=== PATIENT | female | born 1990 | race Caucasian/White ===

== ENCOUNTER → 2018-03-09 16:07 | Outpatient (CLI) | payer OTHER, SELFPAY ==
[2018-03-09 17:59] LABS: Hemoglobin A1c 5.2 % (4.2-6.3)
[2018-03-09 18:04] LABS: Anion Gap 5 (5-15); BUN 12 mg/dL (7-18); BUN/Creat Ratio 14.2 RATIO (10-20); Calcium,Total 8.8 mg/dL (8.5-10.1); Chloride 105 mmol/L (98-107); Creatinine, Serum 0.84 mg/dL (0.55-1.02); EST Glomerular Filtration Rate 87 mL/min (>60); Est Glom Filt Rate - Afr Amer 105 mL/min (>60); Glucose 128 mg/dL (74-106); Potassium 3.7 mmol/L (3.5-5.1); Sodium Level 139 mmol/L (136-145); Thyroid Stim Hormone (TSH) 1.04 uIU/mL (0.358-3.74)
[2018-03-09 18:06] LABS: Absolute Lymphocyte Count 2.41 X10^3/ul (0.83-4.51); Absolute Neutrophil Count 5.9 X10^3/uL (2.0-7.7); Basophil# 0.03 X10^3/uL; Basophil% 0.3 % (0-1); Eosinophil# 0.08 X10^3/uL; Eosinophils% 0.9 % (0-5); Lymphocyte # 2.41 X10^3/ul (4.0); Lymphocyte % 27.3 % (19-41); Mean Corp Hgb Conc 32.5 g/gl (32-36); Mean Corpuscular Hgb 30.6 pg (27.0-32.0); Mean Corpuscular Volume 94.1 fL (81-99); Mean Platelet Vol. 11.1 fl (6.2-12.0); Monocyte# 0.39 X10^3/uL; Monocyte% 4.4 % (0-10); Neutrophil # 5.93 X10^3/uL (2.7-7.7); Neutrophil % 67.1 % (47-70); Platelet Count 310 K/mm3 (150-450); RBC Distribution Width CV 12.9 % (11.6-14.6); RBC Distribution Width SD 44.4 fl (35.1-43.9); Red Blood Count 4.25 M/mm3 (4.2-5.4); White Blood Count 8.8 K/mm3 (4.4-11.0)
[2018-03-09 18:11] LABS: POSITIVE COUNT NO; POSITIVE DIFFERENTIAL NO; POSITIVE MORPHOLOGY NO
== END ==
PROVIDERS: Family Provider Family Medicine; PCP Family Medicine; Visit Provider Family Medicine
DX: Z00.00 Encounter for general adult medical examination without abnormal findings (principal)
CPT/HCPCS: 36415; 80048; 83036; 84443; 85025

== ENCOUNTER → 2018-08-30 | Outpatient (CLI) | payer OTHER, SELFPAY ==
[2017-01-16 03:40] VITALS: BMI 28.6
== END | disposition home or self-care (01) ==
LOC: LAB 16:40
PROVIDERS: Family Provider Family Medicine; PCP Family Medicine; Referring Provider Obstetrics & Gynecology; Visit Provider Obstetrics & Gynecology
DX: Z34.90 Encounter for supervision of normal pregnancy, unspecified, unspecified trimester (principal)
CPT/HCPCS: 36415; 84702

== ENCOUNTER → 2018-09-28 | Outpatient (CLI) | payer OTHER, SELFPAY ==
[2018-09-28 09:04] VITALS: BMI 28.6
[2018-09-28 10:01] LABS: Absolute Lymphocyte Count 1.31 X10^3/ul (0.83-4.51); Basophil# 0.01 X10^3/uL; Basophil% 0.1 % (0-1); Eosinophil# 0.05 X10^3/uL; Eosinophils% 0.7 % (0-5); Hematocrit 38.6 % (37-47); Hemoglobin 13.3 g/dl (12.0-15.0); Lymphocyte # 1.31 X10^3/ul (4.0); Lymphocyte % 18.8 % (19-41); Mean Corp Hgb Conc 34.5 g/gl (32-36); Mean Platelet Vol. 10.8 fl (6.2-12.0); Monocyte# 0.53 X10^3/uL; Monocyte% 7.6 % (0-10); Neutrophil # 5.04 X10^3/uL (2.7-7.7); Neutrophil % 72.7 % (47-70); Platelet Count 266 K/mm3 (150-450); RBC Distribution Width CV 13.2 % (11.6-14.6); Red Blood Count 4.29 M/mm3 (4.2-5.4)
[2018-09-28 10:03] LABS: POSITIVE COUNT NO; POSITIVE DIFFERENTIAL NO; POSITIVE MORPHOLOGY NO
[2018-09-28 10:39] LABS: Glucose Challenge Gest 1H 50g 91 mg/dL (70-140); T4 Free Direct 1.06 ng/dL (0.76-1.46)
[2018-09-28 11:25] LABS: HIV - WCH Non-Reactive (Nonreactive); Rubella IgG 71.3 IU/mL
[2018-09-28 15:41] LABS: Chlamydia Trachomatis by PCR Negative (Negative); Neisserai gonorrhoeae by PCR Negative (Negative); Probe Check PASS; Sample Adequacy Control PASS; Specimen Processing Control PASS
[2018-09-29 11:26] LABS: HEPATITIS B SURFACE AG Negative (Negative)
[2018-09-30 03:28] LABS: Rapid Plasmin Reagin (RPR) NONREACTIVE (NONREACTIVE)
[2018-10-03 17:29] LABS: HPV Reflexed? NOT INDICATED
== END | disposition home or self-care (01) ==
PROVIDERS: Family Provider Family Medicine; PCP Family Medicine; Referring Provider Obstetrics & Gynecology; Visit Provider Obstetrics & Gynecology
DX: Z34.90 Encounter for supervision of normal pregnancy, unspecified, unspecified trimester (principal); Z34.81 Encounter for supervision of other normal pregnancy, first trimester; N89.8 Other specified noninflammatory disorders of vagina; Z12.4 Encounter for screening for malignant neoplasm of cervix; E01.0 Iodine-deficiency related diffuse (endemic) goiter; O99.210 Obesity complicating pregnancy, unspecified trimester; E66.9 Obesity, unspecified; Z3A.00 Weeks of gestation of pregnancy not specified
CPT/HCPCS: 36415; 82950; 84439; 84443; 85025; 86592; 86703; 86762; 86850; 86900; 87070; 87086; 87205; 87340; 87491; 87591; 87624; 88175; G0145

== ENCOUNTER → 2018-10-01 | Outpatient (CLI) | payer OTHER, SELFPAY ==
[2018-09-28 09:04] VITALS: BMI 28.6
--- NOTE | 2018-10-01 09:49 | US_ITS ---
STUDY: THYROID ULTRASOUND REASON FOR EXAM: Female, 28 years old. Thyromegaly TECHNIQUE: Ultrasound evaluation of the thyroid was performed with real-time and static wilkerson-scale imaging. COMPARISON: None. FINDINGS: RIGHT LOBE: The right lobe of the thyroid gland measures 4.9 x 1.7 x 1 cm. There is a homogeneous echotexture. There is a 3 x 2 x 2 mm hypoechoic upper pole nodule. LEFT LOBE: The left lobe of the thyroid gland measures 4.9 x 1.6 x 1.5 cm. There is a homogeneous echotexture. There is a 3 x 3 x 2 mm mid pole hypoechoic nodule. ISTHMUS: The isthmus measures 3 mm . The regional lymph nodes are normal. US/Thyroid IMPRESSION: Bilateral nodules described above, of unlikely clinical significance. Electronically Signed: He Escobar, at 14:18 EDT Tel , Service support ,
== END | disposition home or self-care (01) ==
LOC: US 09:47
PROVIDERS: Family Provider Family Medicine; PCP Family Medicine; Referring Provider Obstetrics & Gynecology; Visit Provider Obstetrics & Gynecology
DX: E01.0 Iodine-deficiency related diffuse (endemic) goiter (principal)
CPT/HCPCS: 76536

== ENCOUNTER → 2018-11-29 | Outpatient (CLI) | payer OTHER, SELFPAY ==
[2018-11-23 08:54] VITALS: BMI 28.6
== END | disposition home or self-care (01) ==
PROVIDERS: Family Provider Family Medicine; PCP Family Medicine; Referring Provider Family Medicine; Visit Provider Family Medicine
DX: K12.0 Recurrent oral aphthae (principal)
CPT/HCPCS: 87255

== ENCOUNTER → 2018-12-01 | Outpatient (CLI) | payer OTHER, SELFPAY ==
[2018-12-01 16:09] VITALS: BMI 26.6
[2018-12-01 18:06] LABS: ALB/GLOB Ratio 0.8 RATIO (0.9-2.4); AST(SGOT) 10 U/L (15-37); Alanine Aminotransfer ALT/SGPT 11 U/L (13-56); Albumin, Serum 3.1 g/dL (3.2-5.0); Alkaline Phosphatase 53 U/L (45-117); Anion Gap 6 (5-15); BUN 10 mg/dL (7-18); BUN/Creat Ratio 14.2 RATIO (10-20); Calcium,Total 8.6 mg/dL (8.5-10.1); Chloride 105 mmol/L (98-107); Creatinine, Serum 0.71 mg/dL (0.55-1.02); EST Glomerular Filtration Rate 106 mL/min (>60); Est Glom Filt Rate - Afr Amer 128 mL/min (>60); Globulin 3.8 g/dL (2.2-4.2); Glucose 76 mg/dL (74-106); Protein, Total 6.9 g/dL (6.4-8.2); Sodium Level 134 mmol/L (136-145)
== END | disposition home or self-care (01) ==
LOC: LAB 16:26
PROVIDERS: Family Provider Family Medicine; PCP Family Medicine; Referring Provider Nurse Practitioner Women's Health; Visit Provider Nurse Practitioner Women's Health
DX: L50.8 Other urticaria (principal)
CPT/HCPCS: 80053

== ENCOUNTER → 2019-01-25 | Outpatient (CLI) | payer OTHER, SELFPAY ==
[2019-01-25 09:12] VITALS: BMI 26.6
[2019-01-25 10:27] LABS: Absolute Lymphocyte Count 1.85 X10^3/uL (0.83-4.51); Absolute Neutrophil Count 8.4 X10^3/uL (2.0-7.7); Basophil# 0.03 X10^3/uL; Basophil% 0.3 % (0-1); Eosinophil# 0.18 X10^3/uL; Eosinophils% 1.6 % (0-5); Hematocrit 35.5 % (37-47); Hemoglobin 11.8 g/dL (12.0-15.0); Lymphocyte # 1.85 X10^3/ul (4.0); Lymphocyte % 16.9 % (19-41); Mean Corp Hgb Conc 33.2 g/dL (32-36); Mean Corpuscular Hgb 32.4 pg (27.0-32.0); Mean Corpuscular Volume 97.5 fL (81-99); Mean Platelet Vol. 10.9 fl (6.2-12.0); Monocyte# 0.47 X10^3/uL; Monocyte% 4.3 % (0-10); NRBC Flagged by Analyzer 0 % (0-5); Neutrophil # 8.36 X10^3/uL (2.7-7.7); Neutrophil % 76.3 % (47-70); Platelet Count 274 K/mm3 (150-450); RBC Distribution Width CV 13.3 % (11.6-14.6); RBC Distribution Width SD 47.8 fl (35.1-43.9); Red Blood Count 3.64 M/mm3 (4.2-5.4)
[2019-01-25 10:40] LABS: Glucose Challenge Gest 1H 50g 101 mg/dL (70-140)
== END | disposition home or self-care (01) ==
LOC: PAVLAB 09:18
PROVIDERS: Family Provider Family Medicine; PCP Family Medicine; Referring Provider Obstetrics & Gynecology; Visit Provider Obstetrics & Gynecology
DX: O26.899 Other specified pregnancy related conditions, unspecified trimester (principal); Z67.91 Unspecified blood type, Rh negative; O09.91 Supervision of high risk pregnancy, unspecified, first trimester; Z3A.00 Weeks of gestation of pregnancy not specified
CPT/HCPCS: 36415; 82950; 85025; 86850; 86900; 86901

== ENCOUNTER → 2019-02-22 | Outpatient (CLI) | payer OTHER, SELFPAY ==
[2019-02-17 08:39] VITALS: BMI 26.6
--- NOTE | 2019-02-22 16:02 | US_ITS ---
STUDY: SECOND AND THIRD TRIMESTER OBSTETRICAL ULTRASOUND REASON FOR EXAM: Female, 29 years old growth LMP: TECHNIQUE: Transabdominal TECHNICAL QUALITY: Adequate. PRIOR ULTRASOUND: None. FINDINGS: There is a single intrauterine fetus. The fetus is in a cephalic presentation. There is demonstrated cardiac activity with a heart rate of 142 bpm. There is a normal amniotic fluid volume. The largest amniotic fluid pocket measures 4.7 cm. The amniotic fluid index (YISSEL) is 14.95 cm. The placenta is posterior There are Grade 2 placental changes. BIOMETRY: BPD: 8.09 cm: 32 weeks, 4 days HC: 29.37 cm: 32 weeks, 3 days AC: 28.26 cm: 32 weeks, 3 days FL: 6.2 cm: 32 weeks, 1 days CI: FL/BPD: FL/HC: FL/AC: HC/AC: age by current US: 32 weeks, 3 days. YUNIEL by current US: April 16, 2019. Estimated weight: 1940 grams, +/- 283 grams, 39 %. ANATOMY: Not studied at this time US/OB Limited With Biometrics IMPRESSION: Viable intrauterine gestation approximately 32-33 weeks gestational age. No significant abnormalities Electronically Signed: He Graham MD at 19:58 EDT , Service support ,
== END | disposition home or self-care (01) ==
LOC: US 16:01
PROVIDERS: Family Provider Family Medicine; PCP Family Medicine; Referring Provider Obstetrics & Gynecology; Visit Provider Obstetrics & Gynecology
DX: Z34.93 Encounter for supervision of normal pregnancy, unspecified, third trimester (principal); Z3A.31 31 weeks gestation of pregnancy
CPT/HCPCS: 76816

== ENCOUNTER → 2019-02-23 | Outpatient (CLI) | payer OTHER, SELFPAY ==
[2019-02-23 08:08] VITALS: BMI 26.6
[2019-02-23 09:03] LABS: ROM Internal Control Test YES-OK TO RESULT pt. (Internal QC); ROM Patient Test Negative (Negative); Record Kit Lot#, ROM+ J8255
== END | disposition home or self-care (01) ==
LOC: LABSPEC 08:37
PROVIDERS: Family Provider Family Medicine; PCP Family Medicine; Visit Provider Obstetrics & Gynecology
DX: N98.9 Complication associated with artificial fertilization, unspecified (principal)
CPT/HCPCS: 84112

== ENCOUNTER → 2019-03-17 | Outpatient (CLI) | payer OTHER, SELFPAY ==
[2019-03-03 08:45] VITALS: BMI 26.6
[2019-03-17 08:46] VITALS: BMI 26.6
--- NOTE | 2019-03-17 09:24 | US_ITS ---
STUDY: SECOND AND THIRD TRIMESTER OBSTETRICAL ULTRASOUND REASON FOR EXAM: Female, 29 years old growth. LMP: July 11, 2018. TECHNIQUE: Transabdominal TECHNICAL QUALITY: Adequate. PRIOR ULTRASOUND: Comparison is made with prior study dated February 22, 2019. FINDINGS: There is a single intrauterine fetus. The fetus is in a cephalic presentation. There is demonstrated cardiac activity with a heart rate of 123 bpm. There is a normal amniotic fluid volume. The largest amniotic fluid pocket measures 5.4 cm. The amniotic fluid index (YISSEL) is 12.3 cm. The placenta is posterior in location and is not low lying. There are Grade 2 placental changes. The cervix measures 3.3 cm in length. The adnexal regions are not visualized. BIOMETRY: BPD: 8.61 cm: 34 weeks, 5 days HC: 31.22 cm: 34 weeks, 6 days AC: 32.47 cm: 36 weeks, 2 days FL: 6.44 cm: 33 weeks, 1 days CI: 82% FL/BPD: 75% FL/HC: FL/AC: 20% HC/AC: 0.96 age by current US: 34 weeks, 3 days. YUNIEL by current US: April 25, 2019. Estimated weight: 2632 grams, +/- 390 grams, 40 %. age by prior US: 35 weeks, 5 days. YUNIEL by prior US: April 16, 2019. Age by LMP: 35 weeks, 4 days. YUNIEL by LMP: April 17, 2019. US/OB Limited With Biometrics IMPRESSION: Single live intrauterine gestation with mean gestational age of 35 weeks and 5 days. The measurements obtained today fall within the normal expected range. Electronically Signed: Isidoro Tello, at 14:48 EDT , Service support ,
== END | disposition home or self-care (01) ==
LOC: OPUS 09:23
PROVIDERS: Family Provider Family Medicine; PCP Family Medicine; Referring Provider Obstetrics & Gynecology; Visit Provider Obstetrics & Gynecology
DX: O09.90 Supervision of high risk pregnancy, unspecified, unspecified trimester (principal); Z86.32 Personal history of gestational diabetes; Z3A.00 Weeks of gestation of pregnancy not specified
CPT/HCPCS: 76816

== ENCOUNTER 2019-03-19 01:35 | Inpatient (IN) | payer OTHER, SELFPAY ==
[2019-03-17 08:46] VITALS: BMI 26.6
[2019-03-19 01:06] VITALS: BMI 28.9
[2019-03-19] MEDS: Lactated Ringers 1,000 ML 50 ML IV (01:35)
[2019-03-19 01:55] LABS: Absolute Lymphocyte Count 3.64 X10^3/uL (0.83-4.51); Absolute Neutrophil Count 8.8 X10^3/uL (2.0-7.7); Basophil# 0.04 X10^3/uL; Basophil% 0.3 % (0-1); Eosinophil# 0.23 X10^3/uL; Eosinophils% 1.7 % (0-5); Hematocrit 37.8 % (37-47); Hemoglobin 12.6 g/dL (12.0-15.0); Lymphocyte # 3.64 X10^3/ul (4.0); Lymphocyte % 26.8 % (19-41); Mean Corp Hgb Conc 33.3 g/dL (32-36); Mean Corpuscular Hgb 31.7 pg (27.0-32.0); Mean Corpuscular Volume 95.2 fL (81-99); Mean Platelet Vol. 11.3 fl (6.2-12.0); Monocyte# 0.81 X10^3/uL; NRBC Flagged by Analyzer 0 % (0-5); Neutrophil # 8.81 X10^3/uL (2.7-7.7); Neutrophil % 64.7 % (47-70); Platelet Count 279 K/mm3 (150-450); RBC Distribution Width CV 12.8 % (11.6-14.6); RBC Distribution Width SD 44.4 fl (35.1-43.9); Red Blood Count 3.97 M/mm3 (4.2-5.4); White Blood Count 13.6 K/mm3 (4.4-11.0)
[2019-03-19 02:59] LABS: Group B Strep DNA By PCR Negative (Negative); Internal Control PASS; Probe Check PASS; Specimen Processing Control PASS
--- NOTE | 2019-03-19 03:42 | HP.PCM_ITS ---
- Problem List (1) Primary herpes simplex infection of oral region Status: Acute Comment: in first trimester, reassurance provided. patient to discuss with director immunology for after , growth us third trimester normal (2) Influenza vaccine administered Status: Acute Comment: given on 02/17/19 (3) Counseling for control regarding intrauterine device (IUD) Status: Acute Comment: IUD 6 wk pp (4) Rh negative status during Status: Acute Qualifiers: Comment: B neg- rhogam given 01/25 (5) History of gestational diabetes Status: Acute Comment: glucola testing, testing normal (6) Supervision of high-risk Status: Acute Qualifiers: Comment: PRR YUNIEL 04/17/19 girl Alcira Hernandez Ayo (7) History of delivery Status: Acute Comment: weekly progesterone injections until 36 weeks (8) Status: Acute Qualifiers: Comment: nl carrier screen, low risk NIPT. MFM Anatomy US normal. declined ntd screening History Date of Admission: 01/16/17 Final YUNIEL: 04/17/19 Gestational age: 35 Weeks and 6 Days History of this : This is a 29 year-old, at 35 weeks gestational age presents with PPROM clear fluid at 1 am. she has occasional ctx but no bleeding. no signs of infection. h/o PTD at 32 weeks. Allergies No Known Allergies Allergy (Verified 03/17/19 08:46) Home Medications: Home Medications Hydroxyprogesterone Caproat/Pf [[place] (PF)] 275 mg SUBCUT QWEEK 03/19/19 Pnv No.95/Ferrous Fum/Folic AC [ Formula Tablet] 1 tab PO DAILY 03/19/19 Smoking Status: Never smoker Number of Fetus(es): 1 NST - FHR Rate Baby A Baseline: 150 Variability:: Moderate Accelerations:: 15 x 15 Decelerations:: None NST Reactive:: Yes FHR Category:: Category I Uterine Activity:: q 10 History Past Pregnancies: Past Pregncies previous 32 weeks PTL Labs: Mom's Microbiology 03/19/19 Unknown Genital vaginal Group B Streptococcus Culture - Pending Mom's Labs & Results 03/19/19 03/19/19 03/19/19 01:12 EST 01:15 EST 01:15 EST WBC 13.6 H RBC 3.97 L Hgb 12.6 Hct 37.8 MCV 95.2 MCH 31.7 MCHC 33.3 RDW Std Deviation 44.4 H RDW Coeff of Rylee 12.8 Plt Count 279 MPV 11.3 Immature Gran % (Auto) 0.500 Neut % (Auto) 64.7 Lymph % (Auto) 26.8 [place] % (Auto) 6.0 Eos % (Auto) 1.7 Baso % (Auto) 0.3 Absolute Neuts (auto) 8.8 H Absolute Lymphs (auto) 3.64 Nucleated RBC % 0 Group B Strep DNA Negative Specimen Comment Not Reportable Blood Type Pending Antibody Screen Pending 03/19/19 01:15 EST WBC RBC Hgb Hct MCV MCH MCHC RDW Std Deviation RDW Coeff of Rylee Plt Count MPV Immature Gran % (Auto) Neut % (Auto) Lymph % (Auto) [place] % (Auto) Eos % (Auto) Baso % (Auto) Absolute Neuts (auto) Absolute Lymphs (auto) Nucleated RBC % Group B Strep DNA Specimen Comment Blood Type B NEGATIVE Antibody Screen NEGATIVE Course Did the patient receive Yes care? Labs Blood Type: B RH: NEGATIVE RPR/VDRL/Syphilis Nonreactive Rubella status Immune HbSAg Negative Date Done: 09/28/18 Chlamydia Negative Gonorrhea Negative HIV/AIDS Non-Reactive Group B Strep: Collected on Admission Current Obstetrical History Gestational Diabetes No: not this Incompetent Cervix No Infertility No IUGR No Macrosomia No Hypertension/Pre-eclampsia No Placenta Previa/Abruption No PTL/PROM Yes Uterine anomaly No Oligohydramnios No Polyhydramnios No Multiple gestation No Past Medical History Asthma No Diabetes No Hypertension No Heart disease No Mitral valve prolapse No Neurologic/Seizure disorder/ No Migraines Kidney disease No Liver disease No Varicosities No Clotting disorders/Hx of DVT No Thyroid Dysfunction No Other medical diseases No Psychiatric disorders No Major trauma No Abnormal PAP smear No Sleep apnea No Mammogram in the last 2 years No Enter DETAILS of medical primary outbreak of oral HSV in 1st trimester history Social History Marital Status: Alleged father Ayo Manjarrez Hx Smoking No Smoking Status Never smoker Expected Delivery Method: Spontaneous Vaginal Review of Systems Constitutional: Denies: Fever, Malaise Eyes: Denies: Blurred vision, Vision Change HEENT: Denies: Head Aches, Visual Changes Cardiovascular: Denies: Chest Pain, Palpitations Respiratory: Denies: Cough, Shortness of Breath, Wheezing Gastrointestinal: Denies: Abdominal Pain, Diarrhea, Nausea, Vomiting Genitourinary: Denies: Dysuria, Hematuria Musculoskeletal: Denies: Joint Pain, Muscle pain Skin: Denies: Lesions, Rash Neurological: Denies: Blurred vision, Focal weakness, Headaches Psychiatric: Denies: Anxiety, Depression Endocrine: Denies: Heat/ Cold Intolerance Hematologic/ Lymphatic: Denies: Easy Bruising, Easy Bleeding Physical Exam General: Alert, Cooperative, No apparent distress HEENT: Atraumatic, Normocephalic. Negative for: Thyromegaly, Lymphadenopathy Cardiovascular: Regular rate Lungs: Normal air movement Abdomen: Soft, Non Tender, Gravid Neurological: Deep Tendon Reflexes 2+/4 and Symmetrical, Neuro grossly intact MID LEVEL CLINICIAN: Normal external genitalia. Negative for: Vulvar lesions Estimated gestational size: Appropriate for gestational size Presentation: Cephalic Cervix Dilation (cm): 1.5 Station: -3 Effacement (%): 20 Assessment/Plan All Active Problems (Last Reviewed 03/17/19 @ 08:46 by Nivia Tejada) Primary herpes simplex infection of oral region (Acute) Influenza vaccine administered (Acute) Counseling for control regarding intrauterine device (IUD) (Acute) Rh negative status during (Acute) History of gestational diabetes (Acute) Supervision of high-risk (Acute) History of delivery (Acute) (Acute) Acute urticaria (Resolved) This is a 29 year-old, , at 35 weeks gestational age presents with PPROM prematurity- celestone ampicillin gbs prophylaxis exp management for 6 hours post delivery then plan pit PRN minimal intervention preferred
[2019-03-19] MEDS: Betamethasone/Betamethasone 30 MG/5 ML Vial 12 MG IM (03:44)
--- NOTE | 2019-03-19 08:33 | PCM.PN.BLA ---
Progress Note discussed with patient balance between exp management and support of her labor- discussed risk fo infection with prolonged labor a nd being . patient open to recheck in 1 hour and start pitocin if no cervical change. FHT: 150 Moderate variability reactive no decelerations category I tracing [place]: irregular Contractions
[2019-03-19] MEDS: Oxytocin 30 units/NS 500 ml 30 UNITS/500 ML IV.SOLN IV (10:32)
[2019-03-19] MEDS: Ondansetron 4 MG/2 ML Vial IV (13:41)
[2019-03-19] MEDS: 0.9% Saline Lock 10 ML Syringe IV (13:42)
[2019-03-19] MEDS: Oxytocin 30 units/NS 500 ml 30 UNITS/500 ML IV.SOLN 334 UNITS IV (14:35)
--- NOTE | 2019-03-19 14:44 | OP.PCM_ITS ---
Problem List (1) Primary herpes simplex infection of oral region Status: Acute Comment: in first trimester, reassurance provided. patient to discuss with meat and seafood manager for after , growth us third trimester normal (2) Influenza vaccine administered Status: Acute Comment: given on 02/17/19 (3) Counseling for control regarding intrauterine device (IUD) Status: Acute Comment: IUD 6 wk pp (4) Rh negative status during Status: Acute Qualifiers: Comment: B neg- rhogam given 01/25 (5) History of gestational diabetes Status: Acute Comment: glucola testing, testing normal (6) Supervision of high-risk Status: Acute Qualifiers: Comment: PRR YUNIEL 04/17/19 girl Alcira Hernandez Ayo (7) History of delivery Status: Acute Comment: weekly progesterone injections until 36 weeks (8) Status: Acute Qualifiers: Comment: nl carrier screen, low risk NIPT. MFM Anatomy US normal. declined ntd screening (9) premature rupture of membranes (PPROM) delivered, current hospitalization Status: Acute Vaginal Delivery Maternal Presentation: Active Labor, - - pprom 29 yo @ 35 weeks presents with PPROM Method of Induction: Pitocin Amniotic Membrane Rupture Type: Spontaneous at home Amniotic Fluid Description: Clear Final YUNIEL: 04/17/19 Gestational age: 35 Weeks and 6 Days Date of Procedure: 03/19/19 Pre-Operative Diagnosis: pprom Post-Operative Diagnosis: same Surgery/ Procedure Performed: Spontaneous Vaginal Delivery Type of Anesthesia: Epidural Description of Procedure: Patient began pushing and delivered the head in the ELIF presentation. The head was delivered atraumatically. The anterior and posterior shoulders delivered without complication followed by the rest of the infant and the was placed on the maternal abdomen. Delayed cord clamping was employed for approximately 60 seconds. Cord was clamped and cut and gentle traction was applied to the cord and the placenta delivered spontaneously immediately following it was noted to be intact with three-vessel cord. The perineum and vagina were inspected and noted to have a small first-degree perineal laceration that was injected with 1% lidocaine and repaired in the usual fashion with 3-0 Vicryl Rapide. EBL was 100 cc. Patient and infant tolerated delivery well. Presentation: ELIF Placental Delivery Description: Spontaneous Placenta Disposition: [facility] Cord Vessel Description: 3 Vessels Cord Entanglement: None Estimated Blood Loss: 100 A gender: Female Episiotomy Description: None Laceration: Perineal Extension/lac, 1st degree Medications given after delivery: IV Pitocin Complications: None Multi Select Codes - Urinary/Genital Urinary/Genital CPT Codes: 56253 Vaginal Delivery [facility]
[2019-03-19] MEDS: Acetaminophen 325 MG Tablet PO (15:11)
[2019-03-19 20:10] VITALS: BP 106/51; PULSE 73; RESP 17; TEMP 36.5
[2019-03-19 23:05] VITALS: BP 107/45; PULSE 61; RESP 17
[2019-03-20] VITALS (7 sets, daily range): BP systolic 99–116; BP diastolic 39–63; PULSE 60–73; RESP 16; TEMP 36.6–36.8
[2019-03-20] MEDS: Acetaminophen 500 MG Tablet 1000 MG PO (03:23)
--- NOTE | 2019-03-20 07:20 | PCM.PN.OB ---
Patient Problems: Active and Suspected Problems (Last Reviewed 03/17/19 @ 08:46 by Nivia Tejada) premature rupture of membranes (PPROM) delivered, current hospitalization (Acute) Subjective: doing well no complaints pain controlled no CP SOB N V ambulating well tolerating po lochia moderate, going well - Physical Exam Vitals/I&O's: Vital Signs Temp Pulse Resp BP 97.7 F L 63 16 105/42 L 03/19/19 20:10 03/20/19 03:15 03/20/19 03:15 03/20/19 03:15 Oxygen Delivery Method Room Air Weight: 195 lb 15.855 oz Body Mass Index (BMI) 28.9 Intake and Output for Last 24 Hours 03/19/19 03/19/19 03/20/19 00:59 23:59 23:59 Intake Total Output Total Balance General: Alert, Oriented x3 Abdomen: Soft, Non Tender, Non-Distended, - - FF below U Current Medications Acetaminophen (Tylenol) 1,000 mg PO Q8H PRN PRN PRN Reason: Pain Score 1-3/10 Last Admin: 03/20/19 03:23 Dose: 1,000 mg Documented by: Bisacodyl (Dulcolax) 10 mg RECTAL UD PRN PRN Reason: If no BM Dibucaine (Dibucaine) 1 applic TOPICAL TID PRN PRN; Protocol PRN Reason: Discomfort Hydrocortisone (Hytone) 1 applic TOPICAL TID PRN PRN; Protocol PRN Reason: Discomfort Methylergonovine Maleate (Methergine) 0.2 mg IM X1 PRN PRN Reason: Excess bleeding/uterine atony Naproxen (Naprosyn) 500 mg PO Q8H PRN PRN PRN Reason: Pain Score 1-3/10 Ondansetron HCl (Zofran) 4 mg IV Q4H PRN PRN PRN Reason: Nausea Oxycodone HCl (Oxyir) 5 - 10 mg PO Q4H PRN PRN PRN Reason: Pain Score 4-10/10 Senna/Docusate Sodium (Senokot-S, [place]-Colace) 1 - 2 tablet PO DAILY PRN PRN PRN Reason: Constipation Simethicone (Mylicon) 80 mg PO PCHS PRN PRN Reason: Indigestion/Stomach pain Sodium Chloride () 5 - 15 ml IV UD PRN PRN Reason: SALINE FLUSH Medical Necessity - Tobacco Use Smoking Status: Never smoker Assessment/Plan All Active Problems (Last Reviewed 03/17/19 @ 08:46 by Nivia Tejada) premature rupture of membranes (PPROM) delivered, current hospitalization (Acute) Primary herpes simplex infection of oral region (Acute) Influenza vaccine administered (Acute) Counseling for control regarding intrauterine device (IUD) (Acute) Rh negative status during (Acute) History of gestational diabetes (Acute) Supervision of high-risk (Acute) History of delivery (Acute) (Acute) Acute urticaria (Resolved) s/p PPD # 1 1. routine post delivery care 2. breast feeding- support given 3. rh negative 4. rubella immune
[2019-03-20] MEDS: Naproxen 250 MG Tablet 500 MG PO (09:23)
[2019-03-21 02:05] VITALS: BP 112/46; PULSE 61; RESP 16; TEMP 36.3
--- NOTE | 2019-03-21 07:51 | PCM.PN.OB ---
Patient Problems: Active and Suspected Problems (Last Reviewed 03/17/19 @ 08:46 by Nivia Tejada) premature rupture of membranes (PPROM) delivered, current hospitalization (Acute) Subjective: doing well no complaints pain controlled no CP SOB N V ambulating well tolerating po lochia moderate, going well - Physical Exam Vitals/I&O's: Vital Signs Temp Pulse Resp BP 97.4 F L 61 16 112/46 L 03/21/19 02:05 03/21/19 02:05 03/21/19 02:05 03/21/19 02:05 Oxygen Delivery Method Room Air Weight: 195 lb 15.855 oz Body Mass Index (BMI) 28.9 Intake and Output for Last 24 Hours 03/19/19 03/20/19 03/21/19 23:59 23:59 23:59 Intake Total Output Total Balance General: Alert, Oriented x3 Abdomen: Soft, Non Tender, - - FF below U Current Medications Acetaminophen (Tylenol) 1,000 mg PO Q8H PRN PRN PRN Reason: Pain Score 1-3/10 Last Admin: 03/20/19 03:23 Dose: 1,000 mg Documented by: Bisacodyl (Dulcolax) 10 mg RECTAL UD PRN PRN Reason: If no BM Dibucaine (Dibucaine) 1 applic TOPICAL TID PRN PRN; Protocol PRN Reason: Discomfort Hydrocortisone (Hytone) 1 applic TOPICAL TID PRN PRN; Protocol PRN Reason: Discomfort Methylergonovine Maleate (Methergine) 0.2 mg IM X1 PRN PRN Reason: Excess bleeding/uterine atony Naproxen (Naprosyn) 500 mg PO Q8H PRN PRN PRN Reason: Pain Score 1-3/10 Last Admin: 03/20/19 09:23 Dose: 500 mg Documented by: Ondansetron HCl (Zofran) 4 mg IV Q4H PRN PRN PRN Reason: Nausea Oxycodone HCl (Oxyir) 5 - 10 mg PO Q4H PRN PRN PRN Reason: Pain Score 4-10/10 Senna/Docusate Sodium (Senokot-S, [place]-Colace) 1 - 2 tablet PO DAILY PRN PRN PRN Reason: Constipation Simethicone (Mylicon) 80 mg PO PCHS PRN PRN Reason: Indigestion/Stomach pain Sodium Chloride () 5 - 15 ml IV UD PRN PRN Reason: SALINE FLUSH Medical Necessity - Tobacco Use Smoking Status: Never smoker Assessment/Plan All Active Problems (Last Reviewed 03/17/19 @ 08:46 by Nivia Tejada) premature rupture of membranes (PPROM) delivered, current hospitalization (Acute) Primary herpes simplex infection of oral region (Acute) Influenza vaccine administered (Acute) Counseling for control regarding intrauterine device (IUD) (Acute) Rh negative status during (Acute) History of gestational diabetes (Acute) Supervision of high-risk (Acute) History of delivery (Acute) (Acute) Acute urticaria (Resolved) s/p PPD # 2 1. routine post delivery care 2. breast feeding- support given 3. rh negative 4. rubella immune 5. discharge to hotel today-infant with , first trimester HSV 1 exposure.
--- NOTE | 2019-03-21 07:53 | DCINST_ITS ---
Additional Instructions: If you experience any of the following, contact your healthcare provider. * Bleeding that soaks a pad every hour for 2 hours * Fever 100.4 or higher * Unrelieved incision or abdominal pain * Swelling, redness, discharge or bleeding from your incision or episiotomy site * Your incision begins to separate * Problems urinating (including inability to urinate or burning while urinating). * Visual changes * Severe headache * Flu-like symptoms * Pain or redness in one of both of your breasts * Pain, warmth, tenderness or swelling in your legs, especially the calf area * Frequent nausea and vomiting * Symptoms of depression or anxiety If you experience any of the following, call 911 or go to the nearest Emergency Room. * Chest pain * Problems breathing * Seizure activity * Partial or complete paralysis of a body part, slurred speech, weakness or drooping of the face, or a sudden inability to walk or hold your balance Allergies/Adverse Reactions: Allergies No Known Allergies Allergy (Verified 03/17/19 08:46) Medications to take at Discharge Hydroxyprogesterone Caproat/Pf [[place] (PF)] 275 mg SUBCUT QWEEK 03/19/19 Pnv No.95/Ferrous Fum/Folic AC [ Formula Tablet] 1 tab PO DAILY 03/19/19 Primary Care Physician: Vaishali Wan MD [Primary Care Provider] - Test Results: Test results from this visit will be discussed in further detail at your follow- up appointment, if applicable.
--- NOTE | 2019-03-21 07:53 | PCM.DCVAG ---
Additional Instructions: If you experience any of the following, contact your healthcare provider. Bleeding that soaks a pad every hour for 2 hours Fever 100.4 or higher Unrelieved incision or abdominal pain Swelling, redness, discharge or bleeding from your incision or episiotomy site Your incision begins to separate Problems urinating (including inability to urinate or burning while urinating). Visual changes Severe headache Flu-like symptoms Pain or redness in one of both of your breasts Pain, warmth, tenderness or swelling in your legs, especially the calf area Frequent nausea and vomiting Symptoms of depression or anxiety If you experience any of the following, call 911 or go to the nearest Emergency Room. Chest pain Problems breathing Seizure activity Partial or complete paralysis of a body part, slurred speech, weakness or drooping of the face, or a sudden inability to walk or hold your balance Allergies/Adverse Reactions: Allergies No Known Allergies Allergy (Verified 03/17/19 08:46) Medications to take at Discharge Hydroxyprogesterone Caproat/Pf [[place] (PF)] 275 mg SUBCUT QWEEK 03/19/19 Pnv No.95/Ferrous Fum/Folic AC [ Formula Tablet] 1 tab PO DAILY 03/19/19 Primary Care Physician: Vaishali Wan MD [Primary Care Provider] - Test Results: Test results from this visit will be discussed in further detail at your follow-up appointment, if applicable.
[2019-03-21 09:15] VITALS: BP 116/56; PULSE 68; RESP 16; TEMP 36.6
[2019-03-21 14:30] VITALS: BP 105/52; PULSE 75; RESP 16; TEMP 36.4
== END 2019-03-21 18:45 | disposition home or self-care (01) | DRG 807 ==
PROVIDERS: Admitting Provider Obstetrics & Gynecology; Family Provider Family Medicine; PCP Family Medicine; Referring Provider Obstetrics & Gynecology; Visit Provider Obstetrics & Gynecology
DX: O42.013 Preterm premature rupture of membranes, onset of labor within 24 hours of rupture, third trimester (principal); Z37.0 Single live birth; O70.0 First degree perineal laceration during delivery; Z3A.35 35 weeks gestation of pregnancy
CPT/HCPCS: 59025; 59050; 76815; 85025; 86850; 86900; 86901; 87081; 87653; 99218; J7120; A4216; G0378; J0290; J0702; J2405

== ENCOUNTER → 2019-05-16 13:25 | Outpatient (CLI) | payer OTHER, SELFPAY ==
[2019-05-01 08:51] VITALS: BMI 28.9
--- NOTE | 2019-05-16 13:26 | US_ITS ---
STUDY: THYROID ULTRASOUND REASON FOR EXAM: Female, 29 years old. thyromegaly TECHNIQUE: Ultrasound evaluation of the thyroid was performed with real-time and static wilkerson-scale imaging. COMPARISON: 10/01/2018 FINDINGS: RIGHT LOBE: The right lobe of the thyroid gland measures 5.7 x 1.9 x 1.5 cm. There is a homogeneous echotexture. There are small anechoic cysts measuring up to 4 mm. LEFT LOBE: The left lobe of the thyroid gland measures 5.0 x 1.7 x 1.5 cm. There is a homogeneous echotexture. There are anechoic cysts of the left thyroid gland measuring up to 4 mm. ISTHMUS: The isthmus measures 2.0 mm. The regional lymph nodes are normal. US/Thyroid IMPRESSION: 1. No solid or suspicious thyroid nodules. No interval change. 2. Simple colloidal cysts of the thyroid lobes. Electronically Signed: Sheldon Ernandez MD ([place]) at 16:53 EST , Service support ,
== END ==
PROVIDERS: Family Provider Family Medicine; PCP Family Medicine; Referring Provider Obstetrics & Gynecology; Visit Provider Obstetrics & Gynecology
DX: E01.0 Iodine-deficiency related diffuse (endemic) goiter (principal)
CPT/HCPCS: 76536

== ENCOUNTER → 2020-05-23 09:12 | Outpatient (CLI) | payer OTHER, SELFPAY ==
[2020-05-02 14:52] VITALS: BMI 28.8
--- NOTE | 2020-05-23 09:14 | US_ITS ---
STUDY: THYROID ULTRASOUND REASON FOR EXAM: Female, 30 years old. Enlarged thyroid. TECHNIQUE: Ultrasound evaluation of the thyroid was performed with real-time and static wilkerson-scale imaging. COMPARISON: 05/16/2019. FINDINGS: RIGHT LOBE: The right lobe of the thyroid gland measures 5.0 x 1.7 x 1.7 cm. There is a homogeneous echotexture. There are no demonstrated solid, cystic or complex lesions. Normal vascularity and DOPPLER imaging. LEFT LOBE: The left lobe of the thyroid gland measures 4.9 x 1.7 x 1.2 cm. There is a homogeneous echotexture. In the mid thyroid there is a 3 mm cyst. Normal vascularity on DOPPLER imaging. ISTHMUS: The isthmus measures 0.3 cm. The regional lymph nodes are normal. US/Thyroid IMPRESSION: 1. Single cyst seen in the left thyroid. The other small cysts described on the previous study are not appreciated. 2. No other interval change. Electronically Signed: Lukas Farfan DO at 17:33 EST Tel [phone], Service support ,
[2020-05-23 13:02] LABS: Hemoglobin A1c 5.4 % (3.8-5.6)
[2020-05-23 13:03] LABS: T4 Total, Thyroxin 6.9 ug/dL (4.8-13.9); Thyroid Stim Hormone (TSH) 1.32 uIU/mL (0.358-3.74)
[2020-05-24 16:29] LABS: Anti-Thyroglobulin AB < 1.0 IU/mL (0.0-0.9); Thyroglobulin, Serum Qt. 5.7 ng/mL (1.5-38.5)
== END ==
PROVIDERS: PCP Family Medicine; Referring Provider Family Medicine; Visit Provider Family Medicine
DX: E04.9 Nontoxic goiter, unspecified (principal); Z86.32 Personal history of gestational diabetes
CPT/HCPCS: 36415; 76536; 83036; 84432; 84436; 84443; 86800

== ENCOUNTER → 2020-11-12 | Outpatient (CLI) | payer OTHER, SELFPAY ==
[2020-07-12 09:21] VITALS: BMI 28.3
--- NOTE | 2020-11-11 13:43 | SEP_PTH ---
PATIENT: KATIE CAMACHO LOC: [facility] U#:[id number] AGE/SX: 30/F ROOM: RE11/12/[address]: Dr. Marcus Lindsay MD : [id number] BED: DIS: 11/12/2020 SPEC #: [id number] RECD: 11/12/20 09:55 STATUS: [place] #: [id number] NAA: 11/11/20 13:[address]: Marcus Lindsay DEPT: SURGICAL PATHOLOGY RECD BY: Aliyah Shin ENTERED: 11/12/20 13:02 SP TYPE: SEPTUM OTHR DR: Dr. Vaishali Wan MD [facility] Tissues: Nasal septum, NOS Procedures: Surgery Specimen Level III HEADER OPERATION: Septoplasty PRE-OP DIAGNOSIS: Nasal congestion, hypertrophy of nasal turbinates, deviated nasal septum TISSUE SUBMITTED: Septum MICROSCOPIC DIAGNOSIS Septum: Fragments of bone and cartilage, clinically deviated nasal septum. SJ:pato 11/15/2020 MICROSCOPIC DESCRIPTION Slides are reviewed. GROSS DESCRIPTION Received in fixative is one container labeled with the patient's name and designated septum. The specimen consists of multiple pieces of cartilage and bone measuring in aggregate 3.5 x 3.5 x 0.5 cm. School Psychology Specialist tissue is submitted in one cassette after decalcification. / JOSE:pato 11/12/20 TC:5 CPT: 48234, 02818
== END | disposition home or self-care (01) ==
PROVIDERS: PCP Family Medicine; Referring Provider Otolaryngology; Visit Provider Otolaryngology
DX: J34.2 Deviated nasal septum (principal); J34.3 Hypertrophy of nasal turbinates; R09.81 Nasal congestion
CPT/HCPCS: 88304

== ENCOUNTER 2022-03-27 14:38 | Outpatient (CLI) | payer BC, SELFPAY ==
[2022-03-30 21:07] LABS: Chlamydia By Nucleic Acid AMP Negative (Negative)
[2022-03-31 14:18] LABS: Gonococcus By Nucleic Acid AMP Negative (Negative)
== END 2022-03-27 23:59 | disposition home or self-care (01) ==
PROVIDERS: PCP Family Medicine; Visit Provider Obstetrics & Gynecology
DX: O26.899 Other specified pregnancy related conditions, unspecified trimester (principal); N89.8 Other specified noninflammatory disorders of vagina; Z11.3 Encounter for screening for infections with a predominantly sexual mode of transmission
CPT/HCPCS: 87070; 87205; 87491; 87591

== ENCOUNTER → 2022-05-01 | Outpatient (CLI) | payer BC, SELFPAY ==
[2022-05-01 10:08] LABS: hCG Titer Quant., Serum 7378 mIU/mL (1-3)
== END | disposition home or self-care (01) ==
LOC: LAB 08:19
PROVIDERS: Obstetrics & Gynecology; PCP Family Medicine; Visit Provider Obstetrics & Gynecology
DX: N91.2 Amenorrhea, unspecified (principal)
CPT/HCPCS: 36415; 84702; 86850; 86900; 86901

== ENCOUNTER → 2022-05-04 | Outpatient (CLI) | payer BC, SELFPAY ==
[2022-05-04 11:02] LABS: hCG Titer Quant., Serum 10750 mIU/mL (1-3)
== END | disposition home or self-care (01) ==
LOC: PAVLAB 10:00
PROVIDERS: Nurse Practitioner Women's Health; PCP Family Medicine; Referring Provider Obstetrics & Gynecology; Visit Provider Obstetrics & Gynecology
DX: O20.0 Threatened abortion (principal)
CPT/HCPCS: 36415; 84702

== ENCOUNTER → 2022-05-06 | Outpatient (CLI) | payer BC, SELFPAY ==
--- NOTE | 2022-05-06 12:38 | US_ITS ---
STUDY: FIRST TRIMESTER OBSTETRICAL ULTRASOUND REASON FOR EXAM: Female, 32 years old well being LMP: 03/11/2022. TECHNIQUE: Transvaginal TECHNICAL QUALITY: Adequate. PRIOR ULTRASOUND: None. FINDINGS: There is a gestational sac in the lower uterine segment. The mean sac diameter (MSD) measures 1 cm, indicating an estimated gestational age (EGA) of 5 weeks, 5 days. The gestational sac shape is irregular. There is no demonstrated yolk sac. The placenta is non-visualized. There is no demonstrated embryo ( pole). The estimated gestation age (EGA) by LMP is 8 weeks, 0 days. The estimated date of delivery (YUNIEL) by LMP is 12/16/2022. The estimated gestation age (EGA) by US is 5 weeks, 5 days. The estimated date of delivery (YUNIEL) by US is 01/01/2023. The uterus measures 8.3 cm x 5.2 cm x 4 cm. There is no demonstrated uterine fibroid. The cervix is closed. The right ovary measures 3.6 cm x 2.6 x 2.6 cm. There is no right ovarian cyst. There is no visualized right adnexal mass or complex lesion. The left ovary measures 2.6 cm x 2.4 cm x 2 cm. There is no left ovarian cyst. There is no visualized left adnexal mass or complex lesion. There is no fluid in the cul de sac. US/Transvaginal w/Preg US IMPRESSION: Irregular shaped intrauterine gestational sac in the lower uterine segment. No pole or yolk sac is seen within. Electronically Signed: Isidoro Tello MD at 13:48 EST ,
== END | disposition home or self-care (01) ==
LOC: US 12:35
PROVIDERS: PCP Family Medicine; Referring Provider Nurse Practitioner Women's Health; Visit Provider Nurse Practitioner Women's Health
DX: O20.0 Threatened abortion (principal); Z3A.01 Less than 8 weeks gestation of pregnancy
CPT/HCPCS: 76817

== ENCOUNTER 2022-05-25 18:14 | Emergency (ER) | payer BC, SELFPAY ==
[2022-05-25 18:15] VITALS: BP 135/71; PULSE 96; RESP 18; TEMP 36.3; O2SAT 100; BMI 28.5
--- NOTE | 2022-05-25 20:04 | EKG12_ITS ---
Test Reason : DYSRHYTHMIA Blood Pressure : / mmHG Vent. Rate : 087 BPM Atrial Rate : 087 BPM P-R Int : 122 ms QRS Dur : 086 ms QT Int : 334 ms P-R-T Axes : 062 066 -43 degrees QTc Int : 401 ms Normal sinus rhythm Nonspecific ST and T wave abnormality Abnormal ECG Confirmed by JAMES HENDRICKS, JACLYN ([id number]), editorial cartoonist ROMAN GOODE ([id number]) on 05/27/2022 10:41:18 AM Referred By: FAISAL Confirmed By:JACLYN RAMIREZ MD
--- NOTE | 2022-05-25 20:05 | EX.ED.DYSGE1 ---
HPI History of Present Illness Chief Complaint: Syncope Informant: patient Narrative Narrative: Presenting severe lower pelvic pain around 5:30 PM causing syncopal episode. Currently asymptomatic. No chest pains. No prodromal shortness of breath. She is status post incomplete miscarriage 3 weeks [address] followed [address] Dr. Saul Solomon. She had additional medication reduce miscarriage due to oblite Ovum. She had bleeding for a week. Has not bled for the last 1 or 2 weeks. She states her home a little week ago still positive. She is post return this week for recheck hCG quant. No urinary symptoms. No history of kidney stones. No nausea or vomiting. [facility] Medical History Hx of gestational diabetes in prior , currently Rh negative state in antepartum period Thyroid enlarged Home Medications NK 05/14/22 [History Last Taken Unknown] Allergy/AdvReac Type Severity Reaction Status Date / Time No Known Allergies Allergy Verified 05/25/22 20:16 Family History Grandmother Colon cancer CVA (cerebral vascular accident) Grandfather Colon cancer Surgical History H/O rhinoplasty Social History adopted: No household members: spouse and children number of children: 2 current occupational status: employed current occupation: [employer] current occupational exposures/hazards: No pets and animals: Yes (Not managing litterbox) pets and animals: cat(s) and dog(s) history of recent travel: No sexually active: Yes Smoking Status: Never smoker alcohol intake: never substance use type: does not use well-balanced diet: daily or most days caffeine: No eating out: 1-3 times/week during the past year weight has: remained stable what type of physical activity do you participate in: weight training and other frequency: 1-2 times per week duration: 15-30 minutes/day nisha/baptism: None seatbelt use: always do you feel safe at home: Yes additional social history: -Ayo- 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 ROS ROS ED Constitutional Constitutional ED: Denies chills, fever(s) or sweats Eyes Eyes: Denies change in vision ENT ENT ED: Denies dysphagia or sore throat Cardiovascular Cardiovascular: Denies chest pain, leg edema, palpitations or racing heartbeat Respiratory/Chest Respiratory/Chest: Denies cough, dyspnea or dyspnea on exertion Gastrointestinal Gastrointestinal: Denies abdominal pain, diarrhea, nausea or vomiting Genitourinary Genitourinary ED: Reports other Details: Transient pelvic pain ; Denies dysuria, hematuria or urinary frequency Musculoskeletal Musculoskeletal: Denies back pain, extremity pain or neck pain Integumentary Denies rash or wounds Neurologic Neurologic: Denies headache(s), paresthesias or weakness EXAM Physical Exam Const Vital Signs: 05/25/22 18:15 05/25/22 20:15 05/25/22 22:00 Temperature 97.3 F L Temperature Source Temporal Pulse Rate 96 94 90 Respiratory Rate 18 15 17 Blood Pressure 135/71 H Blood Pressure Mean 92 Pulse Ox 100 99 99 Oxygen Delivery Method Room Air Room Air Room Air Positive well nourished and well developed General Appearance ED: well developed and NAD HEENT Reports moist mucous membranes normocephalic and atraumatic Eyes PERRL, EOMs intact bilaterally and conjunctivae normal General Eye ED: Yes normal appearance of both eyes Neck no lymphadenopathy and supple General: Negative for tenderness Chest Wall Chest: Negative for tenderness Resp normal respiratory effort and normal air movement Effort and Inspection: symmetric chest movement; Negative for respiratory distress Cardio regular rate, regular rhythm and no murmurs Peripheral Pulses: pulses 2+ throughout GI normal to inspection, nondistended, normoactive bowel sounds and non-tender GI Narrative: No pelvic tenderness. No guarding or rebound. Negative High's or McBurney's tenderness. Palpation: Negative for guarding or rebound tenderness present Back/Spine no CVA tenderness and no thoracic nor lumbar tenderness Extremity normal to inspection General Extremety ED: Negative for edema or tenderness General Extremity: Negative for edema Neuro oriented x3, CN's II-XII intact bilaterally and no sensory deficits noted Neuro Narrative: No focal neurological deficits. Sensorium / Orientation: awake and alert Skin no rashes or lesions noted and no wounds MDM MDM MDM Narrative Medical decision making narrative: Patient presented with transient pelvic pain with history likely causing vasovagal syncope. She had no focal deficits. Recent miscarriage with bleeding now stopped for over a couple weeks. Differential includes ovarian torsion, ectopic pregnancies, and ovarian cyst. Clinically soft abdomen pelvis on exam therefore lower likely any surgical emergencies. Syncopal episode from history, EKG normal. Labs obtained and reviewed by myself stable white count 9.5 hemoglobin 13.2. Electrolytes are all normal. Her hCG quant was obtained at 9 and 6 down from this. I discussed this with the. To recheck in the near future to make sure its 0 for complete miscarriage urine noted leukocytes there is no blood. She denies any urinary symptoms. Reevaluation there is no return of symptoms. Did not feel there is any emergent pelvic ultrasound is necessary. We discussed with the patient that she understands. She will call her OB. I did consider CT scan abdomen pelvis with the patient however she declines at this time. Return precautions. All questions were answered. Lab Data Attestation: I reviewed the patient's lab results. Labs: Laboratory Results - last 24 hr 05/25/22 05/25/22 05/25/22 20:18 20:18 20:18 WBC 11.5 H RBC 4.33 Hgb 13.2 Hct 40.2 MCV 92.8 MCH 30.5 MCHC 32.8 RDW Std Deviation 44.3 H RDW Coeff of Rylee 12.9 Plt Count 291 MPV 11.1 Immature Gran % (Auto) 0.300 Neut % (Auto) 83.0 H Lymph % (Auto) 8.9 L Gaines % (Auto) 7.1 Eos % (Auto) 0.4 Baso % (Auto) 0.3 Absolute Neuts (auto) 9.5 H Absolute Lymphs (auto) 1.02 Nucleated RBC % 0 Sodium 137 Potassium 3.8 Chloride 105 Carbon Dioxide 24.0 Anion Gap 8 BUN 16 Creatinine 0.87 Estim Creat Clear Calc 98.81 Est GFR (MDRD) Af Amer 99 Est GFR (MDRD) Non-Af 81 BUN/Creatinine Ratio 18.5 Glucose 109 H Calcium 9.2 HCG, Quant 9 H Urine Color Urine Clarity Urine pH Ur Specific [place] Urine Protein Urine Glucose (UA) Urine Ketones Urine Occult Blood Urine Nitrite Urine Bilirubin Urine Urobilinogen Ur Leukocyte Esterase Urine RBC Urine WBC Ur Squamous Epith Cells Urine Bacteria Urine Mucus 05/25/22 20:20 WBC RBC Hgb Hct MCV MCH MCHC RDW Std Deviation RDW Coeff of Rylee Plt Count MPV Immature Gran % (Auto) Neut % (Auto) Lymph % (Auto) Gaines % (Auto) Eos % (Auto) Baso % (Auto) Absolute Neuts (auto) Absolute Lymphs (auto) Nucleated RBC % Sodium Potassium Chloride Carbon Dioxide Anion Gap BUN Creatinine Estim Creat Clear Calc Est GFR (MDRD) Af Amer Est GFR (MDRD) Non-Af BUN/Creatinine Ratio Glucose Calcium HCG, Quant Urine Color Yellow Urine Clarity Clear Urine pH 6.0 Ur Specific [place] 1.020 Urine Protein 15 H Urine Glucose (UA) Normal Urine Ketones Negative Urine Occult Blood Negative Urine Nitrite Negative Urine Bilirubin Negative Urine Urobilinogen Normal Ur Leukocyte Esterase 100 H Urine RBC 0 SEEN Urine WBC 0-5 SEEN Ur Squamous Epith Cells 0-5 SEEN Urine Bacteria 0 SEEN Urine Mucus 0 SEEN EKG Initial EKG: Attestation: I personally reviewed and interpreted this EKG as follows: Comments: Sinus rate of 87, no ST changes T wave inversion inferior leads. QTc 401. Discharge Plan Triage Chief Complaint: Syncope ED Provider: Wing Ayala Dx/Rx/DC Orders Clinical Impression: Pelvic pain, Syncope, vasovagal Instructions: ED Pelvic Pain, Unknown Cause, ED Fainting, Vagal Reaction Prescriptions: No Action NK Primary Care Provider: Vaishali Wan Referrals: Vaishali Wan MD [Primary Care Provider] - Jacqueline Peraza MD [Med Staff - Active Staff] - 3-5 Days Activity Restrictions/Additional Instructions: Your hCG today down to 9. Labs are stable EKG normal. Follow-up with your ELECTRIC POWER LINE EXAMINER for reevaluation, return if any worsening symptoms. Disposition Disposition: Home, Self Care Discharge Date/Time: 05/25/22 22:25
[2022-05-25 20:15] VITALS: PULSE 94; RESP 15; O2SAT 99
[2022-05-25 20:29] LABS: Bacteria 0 SEEN /hpf (None Seen); Mucous, Urine 0 SEEN /hpf (<or=2+); Red Blood Cells-Urine 0 SEEN /hpf (0-5)
[2022-05-25 20:32] LABS: Absolute Lymphocyte Count 1.02 X10^3/uL (0.83-4.51); Absolute Neutrophil Count 9.5 X10^3/uL (2.0-7.7); Basophil# 0.04 X10^3/uL; Basophil% 0.3 % (0-1); Eosinophil# 0.05 X10^3/uL; Eosinophils% 0.4 % (0-5); Hematocrit 40.2 % (37-47); Hemoglobin 13.2 g/dL (12.0-15.0); Lymphocyte # 1.02 X10^3/ul (0.83-4.51); Lymphocyte % 8.9 % (19-41); Mean Corp Hgb Conc 32.8 g/dL (32-36); Mean Corpuscular Hgb 30.5 pg (27.0-32.0); Mean Corpuscular Volume 92.8 fL (81-99); Mean Platelet Vol. 11.1 fl (6.2-12.0); Monocyte# 0.81 X10^3/uL; Monocyte% 7.1 % (0-10); NRBC Flagged by Analyzer 0 % (0-5); Platelet Count 291 K/mm3 (150-450); RBC Distribution Width CV 12.9 % (11.6-14.6); RBC Distribution Width SD 44.3 fl (35.1-43.9); Red Blood Count 4.33 M/mm3 (4.2-5.4); White Blood Count 11.5 K/mm3 (4.4-11.0)
[2022-05-25 20:33] LABS: Color, Urine Yellow (Yellow); Glucose, Dipstick Normal (Normal); Ketone-Dipstick Negative (Negative); Leukocyte Esterase-Dipstick 100 /ul (Negative); Nitrite-Dipstick Negative (Negative); Occult Blood-Urine Negative /ul (Negative); Protein-Dipstick 15 mg/dl (Negative); Urine Bilirubin Dipstick Negative (Negative); Urine Clarity Clear (Clear); Urine Urobilinogen Normal (Normal)
[2022-05-25 20:46] LABS: Squamous Epithelial Cells - UA 0-5 SEEN /hpf (5-10); White Blood Cells 0-5 SEEN /hpf (0-5)
[2022-05-25 20:47] LABS: Anion Gap 8 (5-15); BUN 16 mg/dL (7-18); BUN/Creat Ratio 18.5 RATIO (10-20); Calcium,Total 9.2 mg/dL (8.5-10.1); Chloride 105 mmol/L (98-107); Creatinine, Serum 0.87 mg/dL (0.55-1.02); EST Glomerular Filtration Rate 81 mL/min (>60); Est Glom Filt Rate - Afr Amer 99 mL/min (>60); Estimated Creatinine Clearance 98.81 ml/min; Glucose 109 mg/dL (74-106); Potassium 3.8 mmol/L (3.5-5.1); Sodium Level 137 mmol/L (136-145)
[2022-05-25 20:53] LABS: hCG Titer Quant., Serum 9 mIU/mL (1-3)
[2022-05-25 22:00] VITALS: PULSE 90; RESP 17; O2SAT 99
== END 2022-05-25 22:25 | disposition home or self-care (01) ==
PROVIDERS: Emergency Provider Emergency Medicine; PCP Family Medicine; Visit Provider Emergency Medicine
DX: R55 Syncope and collapse (principal); R10.2 Pelvic and perineal pain
CPT/HCPCS: 80048; 81001; 84702; 85025; 93005; 99283; A4216

== ENCOUNTER → 2022-05-28 | Outpatient (CLI) | payer BC, SELFPAY | END | disposition home or self-care (01) | LOC: LABSPEC 11:49 | PROVIDERS: PCP Family Medicine; Referring Provider Obstetrics & Gynecology; Visit Provider Obstetrics & Gynecology | DX: N39.0 Urinary tract infection, site not specified (principal) | CPT/HCPCS: 87086; 87088 ==

== ENCOUNTER → 2022-05-30 | Outpatient (CLI) | payer BC, SELFPAY ==
--- NOTE | 2022-05-30 10:24 | US_ITS ---
STUDY: ULTRASOUND OF THE FEMALE PELVIS - COMPLETE REASON FOR EXAM: Female, 32 years old. PAIN LMP: TECHNIQUE: Transabdominal and Transvaginal TECHNICAL QUALITY: Adequate. COMPARISON: None. FINDINGS: The uterus is anteverted and is in a midline position. The uterus measures 9 x 5 x 4 cm. Normal uterine cervix. The endometrium measures 1 mm in thickness, and is 5. There is no demonstrated endometrial mass. There is no demonstrated myometrial mass. I.U.D. - The patient does not have an I.U.D. The right ovary is visualized. The right ovary measures 4.5 x 3 x 3.3 cm. There is a 3.4 x 2.4 x 2.5 cm right ovarian cyst. There is no visualized right adnexal mass or complex lesion. There is normal arterial and normal venous vascularity. The left ovary is visualized. The left ovary measures 3.7 x 2.3 x 2.7 cm. There is a 1.2 cm left ovarian cyst. There is no visualized left adnexal mass or complex lesion. There is normal arterial and normal venous vascularity. There is minimal fluid in the cul-de-sac. The pre void volume of the bladder was 113 ml. Polycystic ovary disease: No. US/Pelvic (Non ) IMPRESSION: Bilateral ovarian cysts. No adnexal masses, large pelvic fluid or ovarian torsion. Electronically Signed: Marii Riley MD at 11:37 EST Reading Location ID and State: , Service support ,
[2022-05-30 12:05] LABS: hCG Titer Quant., Serum 5 mIU/mL (1-3)
== END | disposition home or self-care (01) ==
PROVIDERS: Obstetrics & Gynecology; PCP Family Medicine; Referring Provider Nurse Practitioner Women's Health; Visit Provider Nurse Practitioner Women's Health
DX: O03.9 Complete or unspecified spontaneous abortion without complication (principal); N83.202 Unspecified ovarian cyst, left side; N83.201 Unspecified ovarian cyst, right side; R10.2 Pelvic and perineal pain
CPT/HCPCS: 36415; 76830; 76856; 84702; 93976

== ENCOUNTER 2023-03-07 09:35 | Outpatient (CLI) | payer BC, SELFPAY ==
[2023-03-07 09:45] VITALS: BMI 29.0
[2023-03-07 09:53] VITALS: BP 125/66; PULSE 83; TEMP 36.7; O2SAT 96
[2023-03-07 10:29] LABS: ROM Internal Control Test YES-OK TO RESULT pt. (Internal QC); ROM Patient Test Negative (Negative); Record Kit Lot#, ROM+ K1409
--- NOTE | 2023-03-07 11:54 | OB.TRI.NOTE ---
HPI - General HPI Narrative KATIE CAMACHO, is a 33 F at 24.6 weeks gestation who presents with leaking fluid. Patient stated she has felt like she has been leaking fluid all week and was seen in office and ROM was ruled out and negative. She stated she continues to feel like she is leaking fluid. Denies any vaginal bleeding. Positive movement. Maternal Data Information YUNIEL Calculator Estimated Delivery Date Method Current WG Current Estimate 06/21/23 Manual 24w 6d PFSH PFSH Medical History Hx of gestational diabetes in prior , currently Rh negative state in antepartum period Thyroid enlarged Allergy/AdvReac Type Severity Reaction Status Date / Time No Known Allergies Allergy Verified 03/07/23 10:34 Family History Grandmother Colon cancer CVA (cerebral vascular accident) Grandfather Colon cancer Surgical History H/O rhinoplasty Social History adopted: No household members: spouse and children number of children: 2 current occupational status: employed 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 [employer] current occupational exposures/hazards: No pets and animals: Yes (Not managing litterbox) pets and animals: cat(s) and dog(s) history of recent travel: No sexually active: Yes Smoking Status: Never smoker alcohol intake: never substance use type: does not use well-balanced diet: daily or most days caffeine: No eating out: 1-3 times/week during the past year weight has: remained stable what type of physical activity do you participate in: weight training and other frequency: 1-2 times per week duration: 15-30 minutes/day nisha/sikhism: None seatbelt use: always do you feel safe at home: Yes additional social history: -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 Date Name GA/Weeks Outcome Route Bth Weight Infant Gen Labor Lgth Anesthesia Del Locatn Provider FOB 01/16/17 David 34 live - 4lbs 11oz Female 2 1/2 hours none [facility] Dr. Stu Rollins 03/19/19 Alcira 35 live - Female epidural [facility] BHARAT Delivery Date: 01/16/17 Last Updated by: Krystal Wiley Gestational diabetes Delivery Date: 03/19/19 Last Updated by: Amaya Jones PPROM ROS Eyes Eyes: Denies blurry vision Cardiovascular Cardiovascular: Reports none; Denies chest pain at rest, chest pain with activity or dizziness Respiratory/Chest Respiratory/Chest: Denies cough or dyspnea Gastrointestinal Gastrointestinal: Reports none and other; Denies diarrhea or vomiting Genitourinary Genitourinary: Denies dysuria Musculoskeletal Musculoskeletal: Reports none Integumentary Integumentary: Reports none; Denies rash Neurologic Neurologic: Denies dizziness, headache(s) or other visual disturbances Psychiatric Psychiatric: Reports none Physical Exam Const alert and no apparent distress General Appearance: cooperative Orientation / Consciousness: awake Exam Limitations: no limitations HEENT normocephalic Eyes General Eye: normal appearance of both eyes Neck full ROM Chest inspection of chest normal Resp normal respiratory effort and normal air movement Effort and Inspection: symmetric chest movement Auscultation: clear to auscultation bilaterally Cardio regular rate GI soft to palpation, non-tender and non-distended Inspection: and other Back/Spine normal ROM Extremity full ROM, normal capillary refill and no calf tenderness Skin no rashes or lesions noted Neuro oriented x3 and CN's II-XII intact bilaterally Psych mental status grossly normal Assessment & Plan (1) 24 weeks gestation of : (2) No leakage of amniotic fluid into vagina: PLAN: Plan ROM plus- negative [id number] bpm No contractions Reassurance provided D/C home with follow up in office Dr. Wilson notified
== END 2023-03-07 10:55 | disposition home or self-care (01) ==
LOC: WPOUT 09:37 → WP 09:38
PROVIDERS: PCP Family Medicine; Visit Provider Advanced Practice Midwife
DX: Z03.79 Encounter for other suspected maternal and fetal conditions ruled out (principal); Z3A.24 24 weeks gestation of pregnancy
CPT/HCPCS: 59025; 59050; 84112; 99221; G0378

== ENCOUNTER 2023-05-28 22:00 | Inpatient (IN) | payer BC, SELFPAY ==
--- NOTE | 2023-05-28 | PLAC_PTH ---
PATHOLOGY RESULTS PATIENT: KATIE CAMACHO LOC: WP U#:[id number] AGE/SX: 33/F ROOM: WP003 RE05/28/[address]: Rubia Swanson CNM : 1990 BED: 1 DIS: 05/31/2023 SPEC #: [id number] RECD: 05/31/23 07:37 STATUS: [place] #: [id number] NAA: 05/28/23 00:[address]: Rubia Swanson DEPT: SURGICAL PATHOLOGY RECD BY: Calli Shepherd ENTERED: 05/31/23 07:38 SP TYPE: PLACENTA OTHR DR: Dr. Vaishali Wan MD Tissues: Placenta, NOS Procedures: Surgery Specimen Level V HEADER OPERATION: Vaginal delivery PRE-OP DIAGNOSIS: Possible velamentous cord TISSUE SUBMITTED: Placenta MICROSCOPIC DIAGNOSIS Manriquez placenta (294 gm): Umbilical cord - trivascular with no evidence of inflammation. Placental membranes - minimal chronic decidual inflammation. Placental disc - mild Aakash-Dajuan change, increased intraparenchymal fibrin plaques and microcalcifications. AM:pato 06/01/23 MICROSCOPIC DESCRIPTION Slides are reviewed. GROSS DESCRIPTION SPECIMEN: PLACENTA / CLINICAL INFORMATION: A. Weight: 2.025 kg B. Gestational Age: 36 weeks C. Sex: Female PLACENTAL WEIGHT (POST FIXATION): 294 gm PLACENTAL DIMENSIONS: 15.0 x 11.0 x 3.0 cm PLACENTAL SHAPE: Usual ovoid PLACENTAL WEIGHT FOR GESTATIONAL AGE: Under 10th percentile MEMBRANES - Present A. Insertion: Marginal B. Site of rupture from edge: 4.0 cm from edge of placental disc C. Color of membrane: Mueller-wilkerson D. Abnormalities: None UMBILICAL CORD - Present A. Color: Mueller-wilkerson B. Insertion: Marginal C. Length: 28.0 cm D. Diameter: 0.9 cm E. Number of vessels: Three F. Abnormalities: None PLACENTAL DISC - Present A. Color of surface: Mueller-wilkerson B. surface abnormalities: None C. Maternal cotyledons: Intact with minimal tears D. Attached retro placental clot: No clot E. Cut surface: Dark red and spongy F. Lesions: None G. Separate clot: Absent SECTIONS SUBMITTED: 1. Membrane roll 2. Cord, maternal end 3. Cord, end 4. Placental disc, and maternal surfaces 5. Placental disc, and maternal surfaces 6. Placental disc, and maternal surfaces SJ:pato 05/31/2023 TC:3 CPT: 53754
--- OUTSIDE RECORDS SUMMARY | 2023-05-28 20:28 | XMS RPT_ITS | CCD ---
Author Name Unknown Address [address] [place] [address] Organization [facility] Care Team Providers Care Fashion Designer Name Role Phone Jacqueline Peraza MD Unavailable [phone] MITCHELL MARCIAL Unavailable Unavailable MITCHELL MARCIAL Unavailable Unavailable REFERRING, PHY WO ID~[id number] Unavailable Unava ilable MITCHELL MARCIAL Unavailable Unavailable REFERRING, PHY WO ID~[id number] Unavailable Unava ilable MITCHELL MARCIAL Unavailable Unavailable REFERRING, PHY WO ID~[id number] Unavailable Unava ilable MITCHELL MARCIAL Unavailable Unavailable MITCHELL MACRIAL Unavailable Unavailable MATTHEW DURAN Unavailable Unavailable BRO FERRARO Unavailable Unavailable BRO FERRARO Unavailable Unavailable REFERRING, PHY WO ID Unavailable Unavailable [facility] Primary Care Provider Unavail able JOHN JOHNSON Attending Unavailable ELIZABETH JOHN L Referring Unavailable ELIZABETH JOHN L Referring Unavailable JESSICA RODRIGUEZ Attending Unavailable LAKHWINDER ELI Attending Unavailable GLORIA LOGAN Attending Unavail able JOHN JOHNSON Attending Unavailable NENA DÍAZ Primary Care Unavailable TOYA, CHRISTIANO Referring Unavailable CHRISTIANO SWANSON Attending Unavailable ELIZABETH JOHN L Referring Unavailable TOYA, CHRISTIANO Referring Unavailable TOYA, CHRISTIANO Attending Unavailable JACQUES FAGAN Referring Unavailable JULIOCESAR JOHNSONECCA L Attending Unavailable RYLAN, KARBHAVYA Referring Unavailable ELIZABETH, JOHN L Referring Unavailable JESSICA RODRIGUEZ Attending Unavailable JACQUES FAGAN Attending Unavailable JACQUES FAGAN Referring Unavailable AMAYA ISRAEL Attending Unavailable TOYA, CHRISTIANO Referring Unavailable HACECI AMAYA Referring Unavailable Medications Completed/Discontinued Medications Medication Drug Class(es) Dates Sig (Normalized) Sig (Original) [id number] (2 sources) Start: 02-23-2017 PRE-CHEN FORMULA TABS as directed [id number] Mary Asha Kaushal vit calc,iron,folic ( [id number] ORAL) (17 sources) Start: 02-23-2017 vit calc,iron,folic ( [id number] ORAL) Take by mouth. 0 02/23/2017 Active Problems Active Problems Problem Classification Problem Date Documented Da te Episodic/Chronic Diabetes or abnormal glucose tolerance complicating ; childbirth; or the puerperium (5 sources) Gestational diabetes mellitus; Translations: [Abnormal glucose level] Onset: 02-23-2017 02-23-2017 Episodic Immunizations and screening for infectious disease (2 sources) Needs influenza immunization; Translations: [Encounter for immunization] 02-04-2023 Episodic Other complications of (18 sources) Obesity; Translations: [Obesity complicating , unspecified trimester] Onset: 10-29-2022 10-29-2022 Chronic Other complications of (1 source) Obesity complicating , unspecified trimester; Translations: [Obesity during ] Onset: 10-29-2022 Chronic Other complications of (4 sources) High risk ; Translations: [Supervision of high risk , unspecified, unspecified trimester] Episodic Other complications of (3 sources) Vaginal discharge; Translations: [Other specified related conditions, first trimester] Episodic Other complications of (1 source) H/O: miscarriage; Translations: [Supervision of with other poor reproductive or obstetric history, first trimester] Episodic Residual codes; unclassified (2 sources) Gestation period, 12 weeks; Translations: [12 weeks gestation of ] 12-11-2022 Episodic Residual codes; unclassified (1 source) Gestation period, 20 weeks; Translations: [20 weeks gestation of ] 02-04-2023 Episodic Residual codes; unclassified (1 source) Gestation period, 22 weeks; Translations: [22 weeks gestation of ] 02-19-2023 Episodic Residual codes; unclassified (1 source) Gestation period, 23 weeks; Translations: [23 weeks gestation of ] 02-26-2023 Episodic Residual codes; unclassified (2 sources) Gestation period, 24 weeks; Translations: [24 weeks gestation of ] 03-01-2023 Episodic Residual codes; unclassified (1 source) Gestation period, 28 weeks; Translations: [28 weeks gestation of ] 04-02-2023 Episodic Residual codes; unclassified (1 source) 24 weeks gestation of ; Translations: [24 weeks gestation of ] Onset: 04-02-2023 Episodic Residual codes; unclassified (1 source) 23 weeks gestation of ; Translations: [23 weeks gestation of ] Onset: 02-26-2023 Episodic Thyroid disorders (19 sources) Goiter; Translations: [Nontoxic goiter, unspecified] Onset: 10-29-2022 10-29-2022 Chronic Unclassified (2 sources) care ; Translations: [Encounter for routine follow-up] Onset: 02-23-2017 02-23-2017 Unclassified (1 source) Unknown / UNK(Unknown) Onset: 11-11-2016 Past or Other Problems Problem Classification Problem Date Documented Date Episodic/Chronic Other complications of (18 sources) History of gestational diabetes mellitus; Translations: [Supervision of with other poor reproductive or obstetric history, unspecified trimester] Onset: 10-29-2022 10-29-2022 Episodic Other complications of (20 sources) H/O: premature delivery; Translations: [Supervision of other high risk pregnancies, unspecified trimester] Onset: 10-29-2022 10-29-2022 Episodic Other complications of (11 sources) RhD negative; Translations: [Other specified related conditions, second trimester] Onset: 12-15-2022 12-15-2022 Episodic Other complications of (1 source) Supervision of with other poor reproductive or obstetric history, unspecified trimester; Translations: [H/O gestational diabetes in prior , currently ] Onset: 10-29-2022 Episodic Other complications of (1 source) Supervision of other high risk pregnancies, unspecified trimester; Translations: [History of delivery, currently ] Onset: 11-10-2022 Episodic Other complications of (1 source) Supervision of high risk , unspecified, unspecified trimester; Translations: [Supervision of high risk , antepartum] Onset: 12-11-2022 Episodic Other complications of (1 source) Other specified related conditions, first trimester; Translations: [Vaginal discharge during in first trimester] Onset: 11-10-2022 Episodic Other female genital disorders (1 source) Other specified noninflammatory disorders of vagina; Translations: [Vaginal discharge during in first trimester] Onset: 11-10-2022 Episodic Other and delivery including normal (6 sources) with uncertain dates; Translations: [Encounter for supervision of normal , unspecified, first trimester] Onset: 12-11-2022 Episodic Other screening for suspected conditions (not mental disorders or infectious disease) (4 sources) Patient encounter status; Translations: [Encounter for screening, unspecified] Onset: 11-10-2022 Episodic Residual codes; unclassified (17 sources) History of past delivery; Translations: [Personal history of other complications of , childbirth and the puerperium] Onset: 10-29-2022 10-29-2022 Episodic Residual codes; unclassified (18 sources) Family history of cleft lip; Translations: [Family history of other congenital malformations, deformations and chromosomal abnormalities] Onset: 10-29-2022 10-29-2022 Episodic Residual codes; unclassified (1 source) 16 weeks gestation of ; Translations: [16 weeks gestation of ] Onset: 02-04-2023 Episodic Residual codes; unclassified (1 source) Family history of other congenital malformations, deformations and chromosomal abnormalities; Translations: [Family history of cleft lip] Onset: 10-29-2022 Episodic Unclassified (1 source) Z3A.24 Onset: 11-11-2016 Results Test Name Value Interpretation Reference Range Facil ity Vital Signs Date Time Vital Sign Value Performing Clinician Nkechi castillo 04-02-2023 08:10-0500 Body weight 91.44 kg Amaya Israel APRN.CNP Work Phone: [facility] 04-02-2023 08:10-0500 Diastolic blood pressure 64 mm[Hg] Amaya Israel APRN.CNP Work Phone: [facility] 04-02-2023 08:10-0500 Systolic blood pressure 108 mm[Hg] Amaya Israel APRN.CNP Work Phone: [facility] 03-01-2023 10:31-0400 Body weight 89.54 kg Christiano Swanson APRN.CNM Work Phone: [facility] 03-01-2023 10:31-0400 Diastolic blood pressure 66 mm[Hg] Christiano Swanson WINDOWS CONSULTANT.CNM Work Phone: [facility] 03-01-2023 10:31-0400 Systolic blood pressure 114 mm[Hg] Christiano Swanson WINDOWS CONSULTANT.CNM Work Phone: [facility] 02-04-2023 11:01-0400 Body weight 89.36 kg John Johnson MD Work Phone: [facility] 02-04-2023 11:01-0400 Diastolic blood pressure 68 mm[Hg] John Johnson MD Work Phone: [facility] 02-04-2023 11:01-0400 Systolic blood pressure 122 mm[Hg] John Johnson MD Work Phone: [facility] 12-11-2022 08:33-0400 Body weight 87.09 kg Jessica Rodriguez WINDOWS CONSULTANT.CNM Work Phone: [facility] 12-11-2022 08:33-0400 Diastolic blood pressure 70 mm[Hg] Jessica Rodriguez WINDOWS CONSULTANT.CNM Work Phone: [facility] 12-11-2022 08:33-0400 Systolic blood pressure 128 mm[Hg] Jessica Rodriguez WINDOWS CONSULTANT.CNM Work Phone: [facility] 12-11-2022 08:10-0400 Body height 175.3 cm Ob Ultrasound Work Phone: [facility] 12-11-2022 08:10-0400 Body weight 87.09 kg Ob Ultrasound Work Phone: [facility] 11-10-2022 10:23-0400 Body height 175.3 cm John Johnson MD Work Phone: [facility] 11-10-2022 10:23-0400 Body weight 86.18 kg John Johnson MD Work Phone: [facility] 11-10-2022 10:23-0400 Diastolic blood pressure 74 mm[Hg] John Johnson MD Work Phone: [facility] 11-10-2022 10:23-0400 Systolic blood pressure 116 mm[Hg] John Johnson MD Work Phone: [facility] 02-23-2017 10:43-0400 BMI (Body Mass Index) 26.14 kg/m2 Jacqueline Peraza MD [facility] 02-23-2017 10:43-0400 Body Temperature 97.8 [degF] Jacqueline Peraza MD [facility] 02-23-2017 10:43-0400 BP Diastolic 80 mm[Hg] Jacqueline Peraza MD [facility] 02-23-2017 10:43-0400 BP Systolic 144 mm[Hg] Jacqueline Peraza MD [facility] 02-23-2017 10:43-0400 Height 175.26 cm Jacqueline Peraza MD [facility] 02-23-2017 10:43-0400 Pulse (Heart Rate) 76 /min Jacqueline Peraza MD [facility] 02-23-2017 10:43-0400 Weight 80.29 kg Jacqueline Peraza MD [facility] Encounters Encounter Date Encounter Type Care Provider Facility Start: 05-14-2023 End: 05-14-2023 ambulatory NENA DÍAZ Facility:[facility] Start: 04-30-2023 End: 04-30-2023 ambulatory JESSICA RODRIGUEZ Facility:[facility] Start: 04-15-2023 End: 04-15-2023 ambulatory GLORIA GUDINO Facility:[facility] Start: 04-09-2023 End: 04-10-2023 ambulatory AMAYA ISRAEL Facility:[facility] Start: 04-07-2023 Telephone encounter John Johnson MD Work Phone: OB/Gynecology Procedures Date Procedure Procedure Detail Performing Clinician Start: 04-02-2023 Antibody screen JOHN JOHNSON Plan of Treatment Date Care Activity Detail Author Start: 04-02-2033 Urine microalbumin profile DTaP,Tdap,Td Vaccine (11 - Td or Tdap) [facility] Start: 01-25-2029 Urine microalbumin profile DTaP,Tdap,Td Vaccine (10 - Td or Tdap) [facility] Start: 11-11-2027 HPV TESTING HPV TESTING [facility] Start: 11-11-2027 PAP TESTING PAP TESTING [facility] Start: 03-01-2023 End: 05-01-2023 CBC W Auto Differential panel - Blood CBC + DIFF Lab Routine 24 weeks gestation of Encounter for supervision of other normal in second trimester Expected: 03/01/2023, Expires: 05/01/2023 [facility] Work Phone: Immunizations Immunization Date Immunization Notes Care Provider Fa lucila 04-02-2023 RHO(D) immune globul in- IV or IM Amayawendy Israel WINDOWS CONSULTANT.LOCKER ROOM CLERK Work Phone: [facility] 04-02-2023 tetanus toxoid, redu jacob diphtheria toxoid, and acellular pertussis vaccine, adsorbed Amaya Haceci WINDOWS CONSULTANT.LOCKER ROOM CLERK Work Phone: [facility] 02-04-2023 influenza, injectabl e, quadrivalent, contains preservative John Johnson MD Work Phone: [facility] Payers Date Payer Category Payer Unknown [employer] PPO OOS [id number] 2022-Present [phone] [address] [place] [address] PPO [id number] 2022 Unknown [id number] 2016 Unknown [id number] Social History Date Type Detail Facility Start: 10-29-2022 Tobacco smoking stat us OHIS Never smoked tobacco [facility] Work Phone: Start: 10-29-2022 Tobacco use and exposure Smokeless tobacco non-user [facility] Work Phone: Start: 10-29-2022 End: 04-02-2023 Alcohol intake Lifetime non-drinker (finding) [facility] Start: 10-29-2022 Education 18 [facility] Start: 09-28-2022 [facility] Start: 1990 Sex Assigned At Not on file C [facility] Start: 12-11-2022 End: 04-02-2023 History of Social function [facility] Start: 12-11-2022 End: 04-02-2023 Tobacco use panel [facility] National Score (1-10 0), lower number is lower risk 36 [facility] Goals Date Patient Goal Desired Activity /State Personal health goal Clinical Notes 10-29-2022 to 05-14-2023 Telephone Encounter - Sindy Rod RN - 04/09/2023 8:24 AM ESTTelephone Encounter - Dinora Denis RN - 04/07/2023 5:22 PM Ana Lilia Rojas RN - 04/02/2023 9:49 AM ESTPatient Instructions Note Date & Type Note Facility 05-14-2023 Note HNO ID: [id number] Author: He Vaughn APRN.LOCKER ROOM CLERK Service: ? Author Type: Nurse Practitioner Type: Progress Notes Filed: 05/14/2023 1:12 PM Note Text: Subjective HPI Nontoxic-appearing 35-week female presents urgent care chief complaint flulike symptoms. Patient states had intermittent fever body aches chills sore throat cough chest congestion. Symptoms started 2 days ago. Has not used any OTC medications. Was instructed by SUPERVISING FIRE MARSHAL to be seen urgent care for flu COVID RSV testing. Denies any vaginal discharge leaking of fluid decreased movement. Denies any productive cough chest pain shortness of breath pleuritic pain hemoptysis nausea vomiting abdominal pain change in bowel or bladder habits. Past medical history prescription medication use and allergies reviewed. .Patient presents with: Nasal Congestion: Intermittent fever, body aches, chills, minimal sore throat x 2 days PAST MEDICAL HISTORY Diagnosis Date Deviated septum Enlarged thyroid Gestational diabetes H/O gestational diabetes in prior , currently 10/29/2022 History of colonic polyps Oral herpes Trauma fractured both arms as child PAST SURGICAL HISTORY Procedure Laterality Date COLONOSCOPY RHINOPLASTY ALLERGIES Patient has no known allergies. MEDICATIONS vit calc,iron,folic ( [id number] ORAL) Take by mouth. FAMILY HISTORY Problem Relation Age of Onset No Known Problems Mother No Known Problems Father No Known Problems Sister No Known Problems Brother No Known Problems Brother other (scleroderma) Maternal Grandmother Lung Cancer Maternal Grandfather Stroke Paternal Grandmother No Known Problems Paternal Grandfather Social History Tobacco Use Smoking status: Never Smokeless tobacco: Never Vaping Use Vaping Use: Never used Substance Use Topics Alcohol use: Never Drug use: Never BP 118/84 Pulse 92 Temp 36.3 ?C (97.4 ?F) (Right Tympanic) Resp 16 Wt 95.6 kg (210 lb 12.8 oz) LMP 09/14/2022 SpO2 98% BMI 31.13 kg/m? Review of Systems Constitutional: Positive for chills, fever and malaise/fatigue. HENT: Positive for congestion and sore throat. Negative for ear discharge, ear pain and sinus pain. Eyes: Negative for blurred vision, pain, discharge and redness. Respiratory: Positive for cough. Negative for hemoptysis, sputum production, shortness of breath, wheezing and stridor. Cardiovascular: Negative for chest pain. Gastrointestinal: Negative for abdominal pain, diarrhea, nausea and vomiting. Musculoskeletal: Positive for myalgias. Skin: Negative for itching and rash. Neurological: Positive for headaches. Negative for dizziness. Objective Physical Exam Constitutional: General: She is not in acute distress. Appearance: She is not diaphoretic. HENT: Head: Normocephalic. Jaw: No trismus, tenderness, swelling or pain on movement. Nose: Congestion present. Mouth/Throat: Mouth: Mucous membranes are moist. Pharynx: Oropharynx is clear. Uvula midline. No pharyngeal swelling, oropharyngeal exudate, posterior oropharyngeal erythema or uvula swelling. Eyes: Conjunctiva/sclera: Conjunctivae normal. Pupils: Pupils are equal, round, and reactive to light. Cardiovascular: Rate and Rhythm: Normal rate and regular rhythm. Heart sounds: Normal heart sounds. Pulmonary: Effort: Pulmonary effort is normal. No tachypnea, accessory muscle usage or respiratory distress. Breath sounds: Normal breath sounds. No stridor. No wheezing, rhonchi or rales. Abdominal: General: There is no distension. Palpations: Abdomen is soft. Tenderness: There is no abdominal tenderness. There is no guarding or rebound. Musculoskeletal: Cervical back: Normal range of motion and neck supple. No edema, erythema, rigidity or tenderness. No pain with movement. Normal range of motion. Lymphadenopathy: Cervical: No cervical adenopathy. Skin: General: Skin is warm and dry. Neurological: Mental Status: She is alert and oriented to person, place, and time. ASSESSMENT/PLAN: 1. Viral illness - ICD9: 079.99, ICD10: B34.9 - COVID AND INFLUENZA A/B AND RSV NAAT, ROUTINE Rapid flu test negative. Treat as viral etiology. Patient was educated on supportive therapies. Patient will follow up with primary care provider as needed. Patient was instructed to immediately proceed to emergency room for any new, worsening, or symptoms lasting longer than anticipated. The patient's clinical presentation is otherwise unremarkable at this time. Based on exam and clinical finding, the patient is stable for discharge. Plan of care was discussed with patient. Patient verbalizes understanding and agrees to plan of care. This note was generated using Timeet software. It may contain errors in wording, punctuation, or spelling. He Vaughn APRN.[facility] 04-09-2023 Miscellaneous Notes Order signed and faxed. Sindy Rod RN Written order for breast pump received from [facility] and to to sign. Dinora Denis RN documented in this encounter [facility] 04-02-2023 Note HNO ID: [id number] Author: Carmella Crowder MA Service: ? Author Type: Stable Attendant Type: Progress Notes Filed: 04/02/2023 9:50 AM Note Text: Patient identified by name and date of . Katie Valdovinos presents today for a vaccination of Tdap. Patient denies an allergy to latex: yes Patient denies a severe (life-threatening) allergy to a previous dose of Tdap, DTP, DTaP, DT or Td vaccine. Yes Patient denies history of epilepsy or neurological problems: Yes Patient is afebrile and denies being moderately or severely ill: Yes Patient denies history of Guillain-[place] Syndrome (a severe paralytic illness): Yes Tdap Adacel injection was given without incident. See immunizations for details of immunizations administered today. VIS sheet provided: Yes Provider Amaya Israel CNP was present in office at time of injection. Carmella Crowder MA [facility] 04-02-2023 Nurse Note The patient is here for an injection of Rhogam. Dose: 300 mcg Amount wasted: none. Route: Intramuscular Site: right upper quadrant gluteus Darklight Inspector: CSL Behring Lot #: [id number] Expiration Date: 07/05/2025 Ana Lilia Chaparro RN documented in this encounter [facility] 04-02-2023 Miscellaneous Notes S: Katie is a 33 year old female who presents at 28w4d for a routine visit. Feeling movement. Denies headache, visual changes, chest pain, shortness of breath, vaginal bleeding, leakage of fluid, or dysuria. Feeling well, no complaints. O: See flow sheet Gen: No apparent distress Abd: Gravid, nontender, S=D Assessment/Plan 28 weeks gestation of - ICD9: V22.2, ICD10: Z3A.28 (primary diagnosis) - 1 hour GCT, CBC, and RPR today - Rh negative: Rhogam injection today - LARC form reviewed and signed. Patient declines. - Depression screen negative - Opioid screen negative - plan form discussed and given to patient. - PTL precautions and kick counts reviewed - RTO 2 weeks or sooner if needed History of delivery, currently - ICD9: V23.89, ICD10: O09.899 - Plan for growth ultrasound at 32 weeks per anatomy scan recommendations Need for vaccination - ICD9: V05.9, ICD10: Z23 - TDAP vaccine today - Already received flu vaccine Amaya Israel APRN.DAVID documented in this encounter [facility] 04-02-2023 History of Presen t illness Narrative Patient identified by name and date of . Katie Valdovinos presents today for a vaccination of Tdap. Patient denies an allergy to latex: yes Patient denies a severe (life-threatening) allergy to a previous dose of Tdap, DTP, DTaP, DT or Td vaccine. Yes Patient denies history of epilepsy or neurological problems: Yes Patient is afebrile and denies being moderately or severely ill: Yes Patient denies history of Guillain-[place] Syndrome (a severe paralytic illness): Yes Tdap Adacel injection was given without incident. See immunizations for details of immunizations administered today. VIS sheet provided: Yes Provider Amaya Israel CNP was present in office at time of injection. Carmella Crowder MA documented in this encounter [facility] 04-02-2023 Instructions Carmella Crowder MA - 04/02/2023 8:02 AM EST SEQUENTIAL SCREENINGS The [facility] offers sequential screenings for women who are interested in screenings for chromosomal abnormalities and certain defects during a . The sequential screen combines ultrasound and blood tests to determine the risk of chromosomal abnormalities, including Down's Syndrome (Trisomy 21) and Trisomy 18, as well as open neural tube defects including spina bifida. Ultrasound examination is performed between 11 weeks and 13 weeks gestational age. Blood tests are drawn after the ultrasound and again later in the between 15 and 21 weeks gestational age. Please let your physician know if you are interested in this testing. It will require an appointment with our airplane technician. This is not an ultrasound performed by a physician in our office during a routine visit. SIGNS AND SYMPTOMS OF LABOR 1. Contractions every 10 minutes or more often 2. Clear, pink, or brownish fluid (water) leaking from vagina 3. Feeling that baby is pushing down, pressure 4. Low, dull backache 5. Cramps that feel like a period 6. Cramps with or without diarrhea If you notice any of the above symptoms, contact our office at [phone] and ask to speak with a nurse. After hours, you can call doctors registry at [phone] OR call [facility] at [phone] and ask to have the doctor controlled area checker paged. If you consider this an emergency, dial 9-1-1 or go to your nearest emergency department. NEED HELP? Are you dealing with a violent or abusive relationship? Are you a victim of rape or sexual assult? Call [facility]) 24 hour Crisis Hotline: 393.143.9460 or 588-844-3063. MANUAL Your Guide to a Healthy manual is now on-line. Visit [email or web address] to download your free copy documented in this encounter [facility] 03-05-2023 Miscellaneous Notes DISTANCE HEALTH VISIT This Team Access Model visit is a virtual encounter. It required patient-provider interaction for the medical decision making as documented below. I have communicated my name and active licensure. The patient's identity and physical location were verified at the time of this visit. Either the patient or their legal accounts payable representative has been informed of the risks and benefits of -- and alternatives to -- treatment through a remote evaluation and consents to proceed with the evaluation remotely. SUMIT-S: Katie Valdovinos is a 33 year old female who presents at 24w4d with YUNIEL: 06/21/2023, by Last Menstrual Period for a routine visit. Good FM. Denies headache, visual changes, chest pain, shortness of breath, vaginal bleeding, leakage of fluid, or dysuria. No signs O: See flow sheet Gen: No apparent distress Abd: Gravid, nontender per patient evaluation 02/19 Cervical length 31.8mm P: 1) PTL precautions reviewed and when to call 2) RTO in 2 weeks 3) Reviewed LOF and discharge. If concerns will come for appointments or L&D. Christiano Swanson APRN.CNM I spent 10 minutes in the visit, with more than 50% of the total [id number] time of the visit in counseling / coordination of care. documented in this encounter [facility] 03-01-2023 Miscellaneous Notes Addended by: CHRISTIANO SWANSON on: 03/01/2023 11:00 AM Modules accepted: Orders SUMIT-S: Katie Valdovinos is a 33 year old female who presents at 24w0d with YUNIEL:06/21/2023, by Last Menstrual Period for a problem visit. Denies headache, visual changes, chest pain, shortness of breath, vaginal bleeding, or dysuria. Complaint of damp feeling when she woke up this morning, no leakage of fluid through underwear. [place] when she sat up a small amount of fluid but nothing since. No contractions or cramping. O: See flow sheet Gen: No apparent distress Abd: Gravid, nontender VE:thick, white, vaginal discharge, no odor. No pooling Amniotic Fluid Test 03/01/2023 10:50 AM Fern: neg ; Nitrazine: neg (pH less than 7) Fern Reference Range: Negative for amniotic fluid Nitrazine Reference Range: Normal vaginal pH is acidic (below 7.0) with pH above 7.0 (basic) indicating the presence of amniotic fluid. Lab Address: Ob/gynecology [address] [place] [id number] Dept: [phone] Provider: Christiano Swanson APRN.CNM ASSESSMENT/PLAN: 1. 24 weeks gestation of 2. History of delivery, currently 3. Encounter for supervision of other normal in second trimester P: 1) PTL precautions reviewed and when to call 2) RTO as scheduled 3) Negative for leakage of amniotic fluid. To continue to monitor and if returns, contractions or other concerns to call or go to L&D. Christiano Swanson APRN.CNM documented in this encounter [facility] 03-01-2023 Instructions Tristan Stevenson Cma - 03/01/2023 10:31 AM EDT SEQUENTIAL SCREENINGS The [facility] offers sequential screenings for women who are interested in screenings for chromosomal abnormalities and certain defects during a . The sequential screen combines ultrasound and blood tests to determine the risk of chromosomal abnormalities, including Down's Syndrome (Trisomy 21) and Trisomy 18, as well as open neural tube defects including spina bifida. Ultrasound examination is performed between 11 weeks and 13 weeks gestational age. Blood tests are drawn after the ultrasound and again later in the between 15 and 21 weeks gestational age. Please let your physician know if you are interested in this testing. It will require an appointment with our airplane technician. This is not an ultrasound performed by a physician in our office during a routine visit. SIGNS AND SYMPTOMS OF LABOR 1. Contractions every 10 minutes or more often 2. Clear, pink, or brownish fluid (water) leaking from vagina 3. Feeling that baby is pushing down, pressure 4. Low, dull backache 5. Cramps that feel like a period 6. Cramps with or without diarrhea If you notice any of the above symptoms, contact our office at [phone] and ask to speak with a nurse. After hours, you can call doctors registry at [phone] OR call [facility] at [phone] and ask to have the doctor controlled area checker paged. If you consider this an emergency, dial 3-1-9 or go to your nearest emergency department. NEED HELP? Are you dealing with a violent or abusive relationship? Are you a victim of rape or sexual assult? Call [facility] ([place]) 24 hour Crisis Hotline: 802.514.8342 or 197-049-5193. MANUAL Your Guide to a Healthy manual is now on-line. Visit [email or web address] to download your free copy documented in this encounter [facility] 03-01-2023 Miscellaneous Notes 24w0d Pt calling and stated that she thinks that she has had LOF. She has felt a couple gushes. Pt had recently voided and does not feel that it was urine. Pt not having bleeding or contractions. She has had nothing since 6:30 - 7:00 am. Pt stated that she had an amniotic fluid test at home that in but used it and the result was negative. Pt has hx of delivery. Talked with Dr. Andrade and she said to have pt come in to see provider controlled area checker. This nurse contacted pt and had to leave a voicemail. Pt scheduled at 10:30am. Katie Mccarcken LPN documented in this encounter [facility] 02-22-2023 Miscellaneous Notes Order signed. Christiano Swanson APRN.CNM Patient notified and voiced understanding of results, and appointment date/time. Will attach orders once filed. Aviva Yeboah RN Left message to call office. Ultrasound has been scheduled for 02/26 at 11:15. This is only time available that tech could work patient in. Order pended. Please sign in Dr. Andrade's absence. Aviva Yeboah RN ----- Message from Margaret Andrade MD sent at 02/21/2023 9:51 PM EDT ----- Add to record Pt to be scheduled for CL 1 week documented in this encounter [facility] 02-05-2023 Miscellaneous Notes Linked to appointment. Ana Lilia Chaparro RN Done Jacques Fagan MD Can you please file the now pending order to attach to appointment. Thank you. Done Jacques Fagan MD 2 week u/s scheduled. Please file order to attach to appointment. Sindy Rod RN ----- Message from Jacques Fagan MD sent at 02/05/2023 1:54 PM EDT ----- Needs repeat cervical length US in 2 weeks Jacques Fagan MD documented in this encounter [facility] 02-04-2023 Miscellaneous Notes RR- VB No. LOF No. CTXS No. Movement: present. Other c/o: No. Medication list reviewed. Physical Exam See Flow Sheet Abd: soft, nontender, gravid Ext: edema: Trace A/P 20w3d Estimated Date of Delivery: 06/21/23 anatomy US done today. flu vaccine today f/u in 4 weeks or prn John Johnson M.D. documented in this encounter [facility] 02-04-2023 Instructions Filemon Park Ma - 02/04/2023 11:00 AM EDT SEQUENTIAL SCREENINGS The [facility] offers sequential screenings for women who are interested in screenings for chromosomal abnormalities and certain defects during a . The sequential screen combines ultrasound and blood tests to determine the risk of chromosomal abnormalities, including Down's Syndrome (Trisomy 21) and Trisomy 18, as well as open neural tube defects including spina bifida. Ultrasound examination is performed between 11 weeks and 13 weeks gestational age. Blood tests are drawn after the ultrasound and again later in the between 15 and 21 weeks gestational age. Please let your physician know if you are interested in this testing. It will require an appointment with our airplane technician. This is not an ultrasound performed by a physician in our office during a routine visit. SIGNS AND SYMPTOMS OF LABOR 1. Contractions every 10 minutes or more often 2. Clear, pink, or brownish fluid (water) leaking from vagina 3. Feeling that baby is pushing down, pressure 4. Low, dull backache 5. Cramps that feel like a period 6. Cramps with or without diarrhea If you notice any of the above symptoms, contact our office at [phone] and ask to speak with a nurse. After hours, you can call doctors registry at [phone] OR call [facility] at [phone] and ask to have the doctor controlled area checker paged. If you consider this an emergency, dial 1-7-3 or go to your nearest emergency department. NEED HELP? Are you dealing with a violent or abusive relationship? Are you a victim of rape or sexual assult? Call [facility] ([place]) 24 hour Crisis Hotline: 196.160.2258 or 806-128-9587. MANUAL Your Guide to a Healthy manual is now on-line. Visit [email or web address] to download your free copy documented in this encounter [facility] 12-14-2022 Miscellaneous Notes Patient notified Left message to call office ----- Message from Jessica Rodriguez APRN.CNM sent at 12/14/2022 7:44 AM EDT ----- Please notify patient that she is positive for yeast. She can treat with Monistat 7 vaginally x 7 nights. No intercourse during treatment. Jessica Plotts, WINDOWS CONSULTANT.CNM documented in this encounter [facility] 12-11-2022 Miscellaneous Notes Katie Valdovinos is a 32 year old female who presents at 12w4d Estimated Date of Delivery: 06/21/23 for a routine visit. Just completed NT US- having all blood work drawn today including MaterniT 21. Not sure if started feeling movement. Denies headache, visual changes, chest pain, shortness of breath, vaginal bleeding, leakage of fluid, or dysuria. C/O increased vaginal discharge and irritation. Requesting swab for Yeast/BV. Size equal to dates. PTL/ Bleeding precautions reviewed. RTC in 4 weeks or sooner if needed. Jessica Rodriguez APRN.CNM documented in this encounter [facility] 12-11-2022 Instructions Tristan Stevenson Cma - 12/11/2022 8:34 AM EDT SEQUENTIAL SCREENINGS The [facility] offers sequential screenings for women who are interested in screenings for chromosomal abnormalities and certain defects during a . The sequential screen combines ultrasound and blood tests to determine the risk of chromosomal abnormalities, including Down's Syndrome (Trisomy 21) and Trisomy 18, as well as open neural tube defects including spina bifida. Ultrasound examination is performed between 11 weeks and 13 weeks gestational age. Blood tests are drawn after the ultrasound and again later in the between 15 and 21 weeks gestational age. Please let your physician know if you are interested in this testing. It will require an appointment with our airplane technician. This is not an ultrasound performed by a physician in our office during a routine visit. SIGNS AND SYMPTOMS OF LABOR 1. Contractions every 10 minutes or more often 2. Clear, pink, or brownish fluid (water) leaking from vagina 3. Feeling that baby is pushing down, pressure 4. Low, dull backache 5. Cramps that feel like a period 6. Cramps with or without diarrhea If you notice any of the above symptoms, contact our office at [phone] and ask to speak with a nurse. After hours, you can call doctors registry at [phone] OR call [facility] at [phone] and ask to have the doctor controlled area checker paged. If you consider this an emergency, dial or go to your nearest emergency department. NEED HELP? Are you dealing with a violent or abusive relationship? Are you a victim of rape or sexual assult? Call [facility] ([place]) 24 hour Crisis Hotline: 716.933.4437 or 314-957-7769. MANUAL Your Guide to a Healthy manual is now on-line. Visit [email or web address] to download your free copy documented in this encounter [facility] 11-10-2022 Note HNO ID: [id number] Author: John Johnson MD Service: ? Author Type: Physician Type: Progress Notes Filed: 11/10/2022 11:01 AM Note Text: OB point of care ultrasound was performed. See imaging tab for details. Filemon Park Ma INITIAL OB ASSESSMENT OB Provider: John Johnson MD HPI: Katie is a 32 year old White here to establish Obstetrical Care. Patient's last menstrual period was 09/16/2022 (exact date). from OB Dating Form. Cycles regular was planned Complaints: nausea without vomiting OB History T0 L2 SAB0 IAB0 Ectopic0 Multiple0 Live Births2 Previous history: Prior : never History of 4th degree laceration: No History of shoulder dystocia: No History of Hypertensive disorders including pre-eclampsia, chronic hypertension or gestational hypertension: No History of gestational diabetes: Yes Patient's Risk Screening for delivery: MEDICAL/PSYCHOSOCIAL HISTORY: History of hemorrhage or bleeding concerns: No Thyroid Disease: No- thyromegaly History of chronic hypertension: No History of pre-existing diabetes: No No results found for: ABORHD No weight on file for this encounter. History of abnormal pap: No Prior treatment for cervical dysplasia: none. 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 Do you have any history of depression, anxiety, PTSD, eating disorders or other mood problems: No Do you have any safety concerns or history of traumatic events that you would like to discuss with your provider: No OB Depression and Anxiety Screening- This Encounter (since 11/09/2022) None GENETIC SCREENING: Partner present: No Patient verbalized knowledge of partner family health history: No Do you or your partner have any personal or family history of defects not previously discussed: No Do you have history of a complicated by anomaly, genetic condition, or demise: paternal cousin w/ cleft lip Marital Status: Partner: Name: Ayo Manjarrez Age: 33 Occupation: Physical therapist Gender: Male History of STDs: None PAST MEDICAL HISTORY Diagnosis Date Chlamydia Deviated septum Enlarged thyroid Gestational diabetes History of colonic polyps Oral herpes Trauma fractured both arms as child PAST SURGICAL HISTORY Procedure Laterality Date COLONOSCOPY RHINOPLASTY Current Outpatient Medications Medication Sig Dispense Refill vit calc,iron,folic ( [id number] ORAL) Take by mouth. No current facility-administered medications for this visit. Allergies As of Date: 11/10/2022 (No Known Allergies) Fully Assessed 10/29/2022 Does patient have penicillin allergy: No REVIEW OF SYSTEMS: GENERAL: Negative for: Fever or Chills HEENT: Negative for: Headache, Impaired Vision, Ringing in Ears, Nosebleeds NECK: Negative for: Swelling, Pain, Stiffness RESPIRATORY: Negative for: Cough, Shortness of breath, Wheezing GASTROINTESTINAL: Negative for: Heartburn, Constipation, Diarrhea, Blood in stool, Vomiting MUSCULOSKELETAL: Negative for: Muscle or joint pain, stiffness, Joint swelling NEUROLOGIC/PSYCHIATRIC: Negative for: Weakness, Paralysis, Numbness, Tingling, Tremor, Anxiety, Depression, Memory loss SKIN: Negative for: Rash, Itching GENITOURINARY: Negative for: vaginal discharge, hematuria or dysuria- some irritation and greenish discharge, h/o VB PHYSICAL EXAM: LMP 09/16/2022 GENERAL: pleasant in no apparent distress DERMATOLOGY: Normal, without lesions, non-icteric, and non-hirsute NECK: Supple, full range of motion, no adenopathy, and thyroid normal CHEST: Normal inspiratory effort BREAST: soft, non-tender, symmetric, no dominant mass, normal nipple-areolar complex, no lymphadenopathy, and no nipple discharge ABDOMEN: soft, non-tender, and no masses NEURO: alert and oriented x3,exam grossly non-focal PELVIS: External genitalia normal without lesions. Perineal body intact. No vaginal or cervical lesions. Cervix closed. Uterus 8 week size. No adnexal masses or tenderness. Clinical Pelvimetry: Pelvimetry clinically assessed as adequate Limited OB ultrasound exam: single intrauterine and positive cardiac activity OB Risk Screening: Completed, positive findings include: Patient answered 'Yes' they had a prior howell between 20w and 36w6d. SBIRT Katie Valdovinos was given the 4P's screening tool. Katie answered as follows: OB Opioid Screening - Last Recorded (since 02/13/2022) Did any of your parents have a problem with alcohol or other drug use? No Does your partner have a problem (more content not included)... [facility] 11-10-2022 Miscellaneous Notes Addended by: JOHN JOHNSON on: 11/10/2022 12:13 PM Modules accepted: Orders Addended by: FILEMON PARK MA on: 11/10/2022 11:13 AM Modules accepted: Orders documented in this encounter [facility] 11-10-2022 History of Presen t illness Narrative Images from the original note were not included. OB point of care ultrasound was performed. See imaging tab for details. Filemon Park Ma INITIAL OB ASSESSMENT OB Provider: John Johnson MD HPI: Katie is a 32 year old White here to establish Obstetrical Care. Patient's last menstrual period was 09/16/2022 (exact date). from OB Dating Form. Cycles regular was planned Complaints: nausea without vomiting OB History T0 L2 SAB0 IAB0 Ectopic0 Multiple0 Live Births2 Previous history: Prior : never History of 4th degree laceration: No History of shoulder dystocia: No History of Hypertensive disorders including pre-eclampsia, chronic hypertension or gestational hypertension: No History of gestational diabetes: Yes Patient's Risk Screening for delivery: MEDICAL/PSYCHOSOCIAL HISTORY: History of hemorrhage or bleeding concerns: No Thyroid Disease: No- thyromegaly History of chronic hypertension: No History of pre-existing diabetes: No No results found for: ABORHD No weight on file for this encounter. History of abnormal pap: No Prior treatment for cervical dysplasia: none. 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 Do you have any history of depression, anxiety, PTSD, eating disorders or other mood problems: No Do you have any safety concerns or history of traumatic events that you would like to discuss with your provider: No OB Depression and Anxiety Screening- This Encounter (since 11/09/2022) None GENETIC SCREENING: Partner present: No Patient verbalized knowledge of partner family health history: No Do you or your partner have any personal or family history of defects not previously discussed: No Do you have history of a complicated by anomaly, genetic condition, or demise: paternal cousin w/ cleft lip Marital Status: Partner: Name: Ayo Manjarrez Age: 33 Occupation: Physical therapist Gender: Male History of STDs: None PAST MEDICAL HISTORY Diagnosis Date Chlamydia Deviated septum Enlarged thyroid Gestational diabetes History of colonic polyps Oral herpes Trauma fractured both arms as child PAST SURGICAL HISTORY Procedure Laterality Date COLONOSCOPY RHINOPLASTY Current Outpatient Medications Medication Sig Dispense Refill vit calc,iron,folic ( [id number] ORAL) Take by mouth. No current facility-administered medications for this visit. Allergies As of Date: 11/10/2022 (No Known Allergies) Fully Assessed 10/29/2022 Does patient have penicillin allergy: No REVIEW OF SYSTEMS: GENERAL: Negative for: Fever or Chills HEENT: Negative for: Headache, Impaired Vision, Ringing in Ears, Nosebleeds NECK: Negative for: Swelling, Pain, Stiffness RESPIRATORY: Negative for: Cough, Shortness of breath, Wheezing GASTROINTESTINAL: Negative for: Heartburn, Constipation, Diarrhea, Blood in stool, Vomiting MUSCULOSKELETAL: Negative for: Muscle or joint pain, stiffness, Joint swelling NEUROLOGIC/PSYCHIATRIC: Negative for: Weakness, Paralysis, Numbness, Tingling, Tremor, Anxiety, Depression, Memory loss SKIN: Negative for: Rash, Itching GENITOURINARY: Negative for: vaginal discharge, hematuria or dysuria- some irritation and greenish discharge, h/o VB PHYSICAL EXAM: LMP 09/16/2022 GENERAL: pleasant in no apparent distress DERMATOLOGY: Normal, without lesions, non-icteric, and non-hirsute NECK: Supple, full range of motion, no adenopathy, and thyroid normal CHEST: Normal inspiratory effort BREAST: soft, non-tender, symmetric, no dominant mass, normal nipple-areolar complex, no lymphadenopathy, and no nipple discharge ABDOMEN: soft, non-tender, and no masses NEURO: alert and oriented x3,exam grossly non-focal PELVIS: External genitalia normal without lesions. Perineal body intact. No vaginal or cervical lesions. Cervix closed. Uterus 8 week size. No adnexal masses or tenderness. Clinical Pelvimetry: Pelvimetry clinically assessed as adequate Limited OB ultrasound exam: single intrauterine and positive cardiac activity OB Risk Screening: Completed, positive findings include: Patient answered 'Yes' they had a prior howell between 20w and 36w6d. SBIRT Katie Cira Valdovinos was given the 4's screening tool. Katie answered as follows: OB Opioid Screening - Last Recorded (since 02/13/2022) Did any of your parents have a problem with alcohol or other drug use? No Does your partner have a problem with alcohol or other drug use? Yes past issues ETOH In the past, have you had difficulties in your life because of alcohol or other drugs, including prescription medications? No In the past month have you drunk any alcohol or used other drugs? No Are you taking medication for pain during the either prescribed or not? No Based on the screen and further questions, she is considered at Low risk due to:No past or current use. Positive reinforcement of current behavior. John Johnson MD ASSESSMENT: 32 year old at 7w6d wks gestational age PLAN: 1) Patient oriented to practice. Patient given new OB orientation folder. Discussed nutrition, folic acid supplementation, dietary guidelines, exercise, smoking, alcohol, caffeine, and drug use. Discussed gestational weight gain guidelines. Discussed routine OB labs including STD/HIV. Discussed how to access Your guide to a health and the [employer]. Discussed aneuploidy and carrier screening. Regarding aneuploidy screening, nuchal translucency/first trimester early anatomy ultrasound and NIPT were discussed. Regarding carrier screening, the myriad screen was discussed. The risks/benefits and limitations of NIPT/aneuploidy screening were reviewed including the potential for false negative and false positive results. We discussed the availability of professional-society guided carrier screening and reviewed the conditions screened and limitations of screening. The availability of genetic counseling was reviewed. Information on aneuploidy/carrier screening was provided. The patient chooses: Aneuploidy screening: chooses to proceed with First trimester early anatomy ultrasound (12-13w6d), NIPT (10 weeks), and If concerns with insurance coverage, patient to call back for sequential order. and Carrier screening: Declines Patient offered option of Virtual Visits. Patient unsure. May consider in future. 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 D/w her no routine recommendation for this at this time Follow up in 4 weeks or sooner prn. John Johnson MD documented in this encounter [facility] 11-10-2022 Instructions Filemon Park Ma - 11/10/2022 10:15 AM EDT Please select the following link to access the [facility] Your Guide to a Healthy . [email or web address] documented in this encounter [facility] 10-29-2022 Note HNO ID: [id number] Author: Mirtha Kc RN Service: ? Author Type: ? Type: Progress Notes Filed: 10/29/2022 11:52 AM Note Text: # 1 - Date: 01/16/17, Sex: Female, Weight: 4 lb 11 oz (2.126 kg), GA: 34w0d, Delivery: Vaginal, Spontaneous, Apgar1: None, Apgar5: None, Living: Living, Comments: PROM, delivered precipitously within 3 hours of ROM, 1st degree lac,CAN loose x1,100cc # 2 - Date: 03/19/19, Sex: Female, Weight: 5 lb 15 oz (2.693 kg), GA: 35w0d, Delivery: Vaginal, Spontaneous, Apgar1: None, Apgar5: None, Living: Living, Comments: Francisca, Presented PPROM, Pitocin aug, primary oral herpes during ,EBL 100cc, 1st degree lac # 3 - Date: 05/2022, Sex: None, Weight: None, GA: 7w0d, Delivery: None, Apgar1: None, Apgar5: None, Living: None, Comments: No DANDC # 4 - Date: None, Sex: None, Weight: None, GA: None, Delivery: None, Apgar1: None, Apgar5: None, Living: None, Comments: None [facility] documented in this encounter [facility] note* Diagnosis with uncertain dates in first trimester- Primary with history of miscarriage, first trimester History of delivery, currently with history of pre-term labor documented in this encounter [facility] note* Diagnosis 12 weeks gestation of - Primary state, incidental Vaginal discharge Leukorrhea, not specified as infective documented in this encounter [facility] note* Diagnosis Encounter for (NT) nuchal translucency scan- Primary Other specified screening Supervision of high risk , antepartum Encounter for screening of mother Unspecified screening 12 weeks gestation of state, incidental documented in this encounter [facility] note* Diagnosis Encounter for supervision of other normal in second trimester- Primary 20 weeks gestation of state, incidental Need for influenza vaccination Need for prophylactic vaccination and inoculation against influenza documented in this encounter [facility] note* Diagnosis History of delivery, currently - Primary with history of pre-term labor documented in this encounter [facility] note* Diagnosis History of delivery, currently - Primary with history of pre-term labor 22 weeks gestation of state, incidental documented in this encounter [facility] note* Diagnosis History of delivery, currently - Primary with history of pre-term labor documented in this encounter [facility] note* Diagnosis History of delivery, currently - Primary with history of pre-term labor 23 weeks gestation of state, incidental documented in this encounter [facility] note* Diagnosis 24 weeks gestation of - Primary state, incidental History of delivery, currently with history of pre-term labor Encounter for supervision of other normal in second trimester Vaginal discharge Leukorrhea, not specified as infective documented in this encounter [facility] note* Diagnosis 24 weeks gestation of - Primary state, incidental History of delivery, currently with history of pre-term labor Supervision of other high risk pregnancies, second trimester documented in this encounter [facility] note* Diagnosis 28 weeks gestation of - Primary state, incidental Supervision of other high risk pregnancies, second trimester History of delivery, currently with history of pre-term labor Need for vaccination Need for prophylactic vaccination and inoculation against unspecified single disease documented in this encounter [facility] for referral (narrative)* Diagnostic Procedure Only (Routine) - Pending Review Specialty Diagnoses / Procedures Referred By Contac t Referred To Contact [facility] Diagnoses Supervision of high risk , antepartum Encounter for screening of mother Procedures NUCHAL TRANSLUCENCY WHI US NUCHAL TRANSLUCENCY 1ST GESTATION John Johnson MD [address] [place] [address] [address] Referral ID Status Reason Start Date Expiration Date Visits Requested Visits Authorized [id number] Pending Review Auto-Generat ed Referral 11/10/2022 11/10/2023 1 1 [facility] for referral (narrative)* Diagnostic Procedure Only (Routine) - Pending Review Specialty Diagnoses / Procedures Referred By Contac t Referred To Contact [facility] Diagnoses History of delivery, currently Procedures OBSTETRIC ULTRASOUND WHI US PREG UTERUS AFTER 1ST TRIMEST GESTATION Jacques Fagan MD [address] [place] [address] [facility] [address] [place] [address] Referral ID Status Reason Start Date Expiration Date Visits Requested Visits Authorized [id number] Pending Review Auto-Generat ed Referral 02/05/2023 02/05/2024 1 1 [facility] Diagnostic Procedure Only (Routine) - Authorized Specialty Diagnoses / Procedures Referred By Contac t Referred To Contact [facility] Diagnoses History of delivery, currently Procedures OBSTETRIC ULTRASOUND WHI US PREG UTERUS AFTER 1ST TRIMEST GESTATION Christiano Swanson APRN.CNM [address] [place] [address] [facility] [address] [place] [address] Referral ID Status Reason Start Date Expiration Date Visits Requested Visits Authorized [id number] Authorized Auto-Generat ed Referral 02/22/2023 05/16/2023 1 1 [facility] Summary Purpose Family History No Family History Records FoundNo Family History Records FoundNo Family History Records Found Advance Directives No Advanced Directives Records FoundNo Advanced Directives Records FoundNo Advanced Directives Records Found Health Concerns Problem Noted Date [facility] - [facility] 10/16 [place] - [place] 11/10/2022 Problem Noted Date [facility] - [facility] 10/16 Education - [place] 11/10/2022 Problem Noted Date Diagnosed Date [facility] - [facility] 11/10/2022 Education - [place] 11/10/2022 Problem Noted Date Diagnosed Date [facility] - [facility] 11/10/2022 Education - [place] 11/10/2022 Problem Noted Date Diagnosed Date [facility] - [facility] 11/10/2022 Education - [place] 11/10/2022 Problem Noted Date Diagnosed Date [facility] - [facility] 11/10/2022 Education - [place] 11/10/2022 Problem Noted Date Diagnosed Date [facility] - [facility] 11/10/2022 Education - [place] 11/10/2022 Problem Noted Date Diagnosed Date [facility] - [facility] 11/10/2022 Education - [place] 11/10/2022 Problem Noted Date Diagnosed Date [facility] - [facility] 11/10/2022 Education - [place] 11/10/2022 Problem Noted Date Diagnosed Date [facility] - [facility] 11/10/2022 Education - [place] 11/10/2022 Problem Noted Date Diagnosed Date [facility] - [facility] 11/10/2022 Education - [place] 11/10/2022 Problem Noted Date Diagnosed Date [facility] - [facility] 11/10/2022 Education - [place] 11/10/2022 Reason for Referral Specialty Diagnoses / Procedures Referred By Nikia t Referred To Contact [facility] Amaya Israel APRN.LOCKER ROOM CLERK [address] [place] [address] [facility] [address] [place] [address] Referral ID Status Reason Start Date Expiration Date V isits Requested Visits Authorized [id number] Pending Review 04/02/2023 07/01/2023 1 1 Additional Source Comments INFORMATION SOURCE (unrecogn ized section and content) DATE CREATED AUTHOR AUTHOR'S ORGANIZ ATION 11/10/2017 [facility] DATE CREATED AUTHOR AUTHOR'S ORGANIZ ATION 05/15/2023 [facility] Source Comments (unrecognize d section and content) In the event this informatio n is protected by the Federal Confidentiality of Alcohol and Drug Abuse Patient Records regulations: The Federal rules restrict any use of the information to criminally investigate or prosecute any alcohol or drug abuse patient.[facility] the event this information is protected by the Federal Confidentiality of Alcohol and Drug Abuse Patient Records regulations: The Federal rules restrict any use of the information to criminally investigate or prosecute any alcohol or drug abuse patient.[facility] the event this information is protected by the Federal Confidentiality of Alcohol and Drug Abuse Patient Records regulations: The Federal rules restrict any use of the information to criminally investigate or prosecute any alcohol or drug abuse patient.[facility] the event this information is protected by the Federal Confidentiality of Alcohol and Drug Abuse Patient Records regulations: The Federal rules restrict any use of the information to criminally investigate or prosecute any alcohol or drug abuse patient.[facility] the event this information is protected by the Federal Confidentiality of Alcohol and Drug Abuse Patient Records regulations: The Federal rules restrict any use of the information to criminally investigate or prosecute any alcohol or drug abuse patient.[facility] the event this information is protected by the Federal Confidentiality of Alcohol and Drug Abuse Patient Records regulations: The Federal rules restrict any use of the information to criminally investigate or prosecute any alcohol or drug abuse patient.[facility] the event this information is protected by the Federal Confidentiality of Alcohol and Drug Abuse Patient Records regulations: The Federal rules restrict any use of the information to criminally investigate or prosecute any alcohol or drug abuse patient.[facility] the event this information is protected by the Federal Confidentiality of Alcohol and Drug Abuse Patient Records regulations: The Federal rules restrict any use of the information to criminally investigate or prosecute any alcohol or drug abuse patient.[facility] the event this information is protected by the Federal Confidentiality of Alcohol and Drug Abuse Patient Records regulations: The Federal rules restrict any use of the information to criminally investigate or prosecute any alcohol or drug abuse patient.[facility] the event this information is protected by the Federal Confidentiality of Alcohol and Drug Abuse Patient Records regulations: The Federal rules restrict any use of the information to criminally investigate or prosecute any alcohol or drug abuse patient.[facility] the event this information is protected by the Federal Confidentiality of Alcohol and Drug Abuse Patient Records regulations: The Federal rules restrict any use of the information to criminally investigate or prosecute any alcohol or drug abuse patient.[facility] Center[facility] the event this information is protected by the Federal Confidentiality of Alcohol and Drug Abuse Patient Records regulations: The Federal rules restrict any use of the information to criminally investigate or prosecute any alcohol or drug abuse patient.[facility] the event this information is protected by the Federal Confidentiality of Alcohol and Drug Abuse Patient Records regulations: The Federal rules restrict any use of the information to criminally investigate or prosecute any alcohol or drug abuse patient.[facility] Center[facility] the event this information is protected by the Federal Confidentiality of Alcohol and Drug Abuse Patient Records regulations: The Federal rules restrict any use of the information to criminally investigate or prosecute any alcohol or drug abuse patient.[facility] Center[facility] the event this information is protected by the Federal Confidentiality of Alcohol and Drug Abuse Patient Records regulations: The Federal rules restrict any use of the information to criminally investigate or prosecute any alcohol or drug abuse patient.[facility] Center[facility] the event this information is protected by the Federal Confidentiality of Alcohol and Drug Abuse Patient Records regulations: The Federal rules restrict any use of the information to criminally investigate or prosecute any alcohol or drug abuse patient.[facility] Center[facility] the event this information is protected by the Federal Confidentiality of Alcohol and Drug Abuse Patient Records regulations: The Federal rules restrict any use of the information to criminally investigate or prosecute any alcohol or drug abuse patient.[facility] Care Teams (unrecognized sec tion and content) Fashion Designer Relationship Specialty Start Date End Date [place] [address] [place] [address] PCP - General Ophthalmology 12/11/14 Fashion Designer Relationship Specialty Start Date End Date [place] [address] [place] [address] PCP - General Ophthalmology 12/11/14 Fashion Designer Relationship Specialty Start Date End Date [address] [place] [address] PCP - General Ophthalmology 12/11/14 Fashion Designer Relationship Specialty Start Date End Date [place] [address] [place] [address] PCP - General Ophthalmology 12/11/14 Fashion Designer Relationship Specialty Start Date End Date [address] [place] [address] PCP - General Ophthalmology 12/11/14 Fashion Designer Relationship Specialty Start Date End Date [place] [address] [place] [address] PCP - General Ophthalmology 12/11/14 Fashion Designer Relationship Specialty Start Date End Date [place] [address] [place] [address] PCP - General Ophthalmology 12/11/14 Fashion Designer Relationship Specialty Start Date End Date [address] [place] [address] PCP - General Ophthalmology 12/11/14 Fashion Designer Relationship Specialty Start Date End Date [address] [place] [address] PCP - General Ophthalmology 12/11/14 Fashion Designer Relationship Specialty Start Date End Date [address] [place] [address] PCP - General Ophthalmology 12/11/14 Fashion Designer Relationship Specialty Start Date End Date [address] [place] [address] PCP - General Ophthalmology 12/11/14 Fashion Designer Relationship Specialty Start Date End Date [address] [place] [address] PCP - General Ophthalmology 12/11/14 Reason for Visit (unrecogniz ed section and content) Specialty Diagnoses / Procedures Referred By Contac t [facility] Diagnoses Supervision of high risk , antepartum Encounter for screening of mother Procedures NUCHAL TRANSLUCENCY WHI US NUCHAL TRANSLUCENCY 1ST GESTATION John Johnson MD [address] [place] [address] [id number] [place] [address] Referral ID Status Reason Start Date Expiration Date Visits Requested Visits Authorized [id number] Authorized Auto-Generat ed Referral 12/02/2022 05/16/2023 99 99 Reason Comments Initial OB Visit Reason Onset Date Comments Care 12/11/2022 Reason Comments Results Reason Onset Date Comments Care 02/04/2023 Immunizations 02/04/2023 Flu vaccination Reason Comments Orders Specialty Diagnoses / Procedures Referred By Contac t Referred To Contact [facility] Diagnoses History of delivery, currently Procedures OBSTETRIC ULTRASOUND WHI US PREG UTERUS AFTER 1ST TRIMEST 1 GESTATION Jacques Fagan MD [address] [place] [address] [address] Referral ID Status Reason Start Date Expiration Date V isits Requested Visits Authorized [id number] Closed Auto-Generate d Referral 02/19/2023 05/16/2023 1 1 Reason Comments Results Orders Specialty Diagnoses / Procedures Referred By Contac t Referred To Contact [facility] Diagnoses History of delivery, currently Procedures OBSTETRIC ULTRASOUND WHI US PREG UTERUS AFTER 1ST TRIMEST GESTATION Christiano Swanson, WINDOWS CONSULTANT.CNM [address] [place] [address] [facility] [address] [place] [address] Referral ID Status Reason Start Date Expiration Date V isits Requested Visits Authorized [id number] Closed Auto-Generate d Referral 02/22/2023 05/16/2023 1 1 Reason Comments leaking fluid Reason Onset Date Comments Care 03/01/2023 Reason Onset Date Comments Care 04/02/2023 Specialty Diagnoses / Procedures Referred By Contac t Referred To Contact [facility] Amaya Israel, WINDOWS CONSULTANT.LOCKER ROOM CLERK [address] [place] [address] [facility] [place] [address] Referral ID Status Reason Start Date Expiration Date V isits Requested Visits Authorized [id number] Pending Review 04/02/2023 07/01/2023 1 1 Reason Comments breast pump order FOR RECORDS PERTAINING TO PATIENTS WHO ARE OR HAVE BEEN ENROLLED IN A CHEMICAL DEPENDENCY/SUBSTANCEABUSE PROGRAM, SOME INFORMATION MAY BE OMITTED. This clinical summary was aggregated from multiple sources. Caution should be exercised in using it in the provision of clinical care. This summary normalizes information from multiple sources, and as a consequence, information in this document may materially change the coding, format and clinical context of patient data. In addition, data may be omitted in some cases. CLINICAL DECISIONS SHOULD BE BASED ON THE PRIMARY CLINICAL RECORDS. [facility]. provides no warranty or guarantee of the accuracy or completeness of information in this document.
[2023-05-28 20:34] VITALS: BP 142/81; PULSE 90; TEMP 37.2; O2SAT 98
[2023-05-28 20:38] VITALS: BMI 31.4
[2023-05-28 21:55] LABS: ROM Internal Control Test YES-OK TO RESULT pt. (Internal QC)
[2023-05-28 21:56] LABS: Group B Strep DNA By PCR Negative (Negative); Internal Control PASS; Probe Check PASS; Specimen Processing Control PASS
[2023-05-28 21:56] LABS: ROM Patient Test POSITIVE (Negative); Record Kit Lot#, ROM+ K1374
[2023-05-28 21:58] VITALS: BP 151/81; PULSE 83
--- OUTSIDE RECORDS SUMMARY | 2023-05-28 22:06 | XMS RPT_ITS | CCD ---
Author Name Unknown Address [email or web address] [place] [address] Organization [facility] Care Team Providers Care Instructional Resource Teacher Name Role Phone Jacqueline Peraza MD Unavailable [phone] MITCHELL MARCIAL Unavailable Unavailable MITCHELL MARCIAL Unavailable Unavailable REFERRING, PHY WO ID~[id number] Unavailable Unava ilable MITCHELL MARCIAL Unavailable Unavailable REFERRING, PHY WO ID~[id number] Unavailable Unava ilable MITCHELL MARCIAL Unavailable Unavailable REFERRING, PHY WO ID~[id number] Unavailable Unava ilable MITCHELL MARCIAL Unavailable Unavailable MITCHELL MARCIAL Unavailable Unavailable MATTHEW DURAN Unavailable Unavailable BRO FERRARO Unavailable Unavailable BRO FERRARO Unavailable Unavailable REFERRING, PHY WO ID Unavailable Unavailable [facility] Primary Care Provider Unavail able JOHN JOHNSON [...] Drug Class(es) Dates Sig (Normalized) Sig (Original) FNALWIJE-FTP-FR-FA (2 sources) Start: 02-23-2017 PRE-CHEN FORMULA TABS as directed UOHSNACU-BUG-CK-FA [id number] Amry Asha Kaushal vit calc,iron,folic ( KNNKRVNU-MFI-BP-FA ORAL) (17 sources) Start: 02-23-2017 vit calc,iron,folic ( QDLQTMLS-CYB-GT-FA ORAL) Take by mouth. 0 02/23/2017 Active [...] 91.44 kg Amaya Israel APRN.CNP Work Phone: [facility] 04-02-2023 08:10-0500 Diastolic blood pressure 64 mm[Hg] Amaya Israel APRN.CNP Work Phone: [facility] 04-02-2023 08:10-0500 Systolic blood pressure 108 mm[Hg] Amaya Israel APRN.CNP Work Phone: [facility] 03-01-2023 10:31-0400 Body weight 89.54 kg Christiano Swanson APRN.CNM Work Phone: [facility] 03-01-2023 10:31-0400 Diastolic blood pressure 66 mm[Hg] Christiano Swanson PSYCH COORDINATOR.CNM Work Phone: [facility] 03-01-2023 10:31-0400 Systolic blood pressure 114 mm[Hg] Christiano Swanson PSYCH COORDINATOR.CNM Work Phone: [facility] 02-04-2023 11:01-0400 Body weight 89.36 kg John Johnson MD Work Phone: [facility] 02-04-2023 11:01-0400 Diastolic blood pressure 68 mm[Hg] John Johnson MD Work Phone: [facility] 02-04-2023 11:01-0400 Systolic blood pressure 122 mm[Hg] John Johnson MD Work Phone: [facility] 12-11-2022 08:33-0400 Body weight 87.09 kg Jessica Rodriguez PSYCH COORDINATOR.CNM Work Phone: [facility] 12-11-2022 08:33-0400 Diastolic blood pressure 70 mm[Hg] Jessica Rodriguez PSYCH COORDINATOR.CNM Work Phone: [facility] 12-11-2022 08:33-0400 Systolic blood pressure 128 mm[Hg] Jessica Rodriguez PSYCH COORDINATOR.CNM Work Phone: [facility] 12-11-2022 08:10-0400 Body height 175.3 cm Ob Ultrasound Work Phone: [facility] 12-11-2022 08:10-0400 Body weight 87.09 kg Ob Ultrasound Work Phone: [facility] 11-10-2022 10:23-0400 Body height 175.3 cm John Johnson MD Work Phone: [facility] 11-10-2022 10:23-0400 Body weight 86.18 kg John Johnson MD Work Phone: [facility] 11-10-2022 10:23-0400 Diastolic blood pressure 74 mm[Hg] John Johnson MD Work Phone: [facility] 11-10-2022 10:23-0400 Systolic blood pressure 116 mm[Hg] John Johnson MD Work Phone: [facility] 02-23-2017 10:43-0400 BMI (Body Mass Index) 26.14 kg/m2 Jacqueline Peraza MD [facility] 02-23-2017 10:43-0400 Body Temperature 97.8 [degF] Jacqueline Peraza MD [facility] 02-23-2017 10:43-0400 BP Diastolic 80 mm[Hg] Jacqueline Peraza MD [facility] 02-23-2017 10:43-0400 BP Systolic 144 mm[Hg] Jacqueline Peraza MD [facility] 02-23-2017 10:43-0400 Height 175.26 cm Jacqueline Peraza MD [facility] 02-23-2017 10:43-0400 Pulse (Heart Rate) 76 /min Jacqueline Peraza MD [facility] 02-23-2017 10:43-0400 Weight 80.29 kg Jacqueline Peraza MD [facility] Encounters Encounter Date Encounter Type Care Provider Facility Start: 05-14-2023 End: 05-14-2023 ambulatory NENA DÍAZ Facility:[facility] Start: 04-30-2023 End: 04-30-2023 ambulatory JESSICA RODRIGUEZ Facility:[facility] Start: 04-15-2023 End: 04-15-2023 ambulatory GLORIA GUDINO Facility:[facility] Start: 04-09-2023 End: 04-10-2023 ambulatory AMAYA ISRAEL Facility:[facility] Start: 04-07-2023 Telephone encounter John Johnson MD Work Phone: OB/Gynecology Procedures Date Procedure Procedure Detail Performing Clinician Start: 04-02-2023 Antibody screen JOHN JOHNSON Plan of Treatment Date Care Activity Detail Author Start: 04-02-2033 Urine microalbumin profile DTaP,Tdap,Td Vaccine (11 - Td or Tdap) [facility] Start: 01-25-2029 Urine microalbumin profile DTaP,Tdap,Td Vaccine (10 - Td or Tdap) [facility] Start: 11-11-2027 HPV TESTING HPV TESTING [facility] Start: 11-11-2027 PAP TESTING PAP TESTING [facility] Start: 03-01-2023 End: 05-01-2023 CBC W Auto Differential panel - Blood CBC + DIFF Lab Routine 24 weeks gestation of Encounter for supervision of other normal in second trimester Expected: 03/01/2023, Expires: 05/01/2023 [facility] Work Phone: Immunizations Immunization Date Immunization Notes Care Provider Fa lucila 04-02-2023 RHO(D) immune globul in- IV or IM Amayawendy Israel PSYCH COORDINATOR.ARCHITECT MANAGER Work Phone: [facility] 04-02-2023 tetanus toxoid, redu jacob diphtheria toxoid, and acellular pertussis vaccine, adsorbed Amaya Haceci PSYCH COORDINATOR.ARCHITECT MANAGER Work Phone: [facility] 02-04-2023 influenza, injectabl e, quadrivalent, contains preservative John Johnson MD Work Phone: [facility] Payers Date Payer Category Payer Unknown [employer] PPO OOS [id number] 2022-Present [phone] [address] [place] [address] PPO [id number] 2022 Unknown [id number] 2016 Unknown [id number] Social History Date Type Detail Facility Start: 10-29-2022 Tobacco smoking stat us GAIS Never smoked tobacco [facility] Work Phone: Start: 10-29-2022 Tobacco use and exposure Smokeless tobacco non-user [facility] Work Phone: Start: 10-29-2022 End: 04-02-2023 Alcohol intake Lifetime non-drinker (finding) [facility] Start: 10-29-2022 Education 18 [facility] Start: 09-28-2022 [facility] Start: 1990 Sex Assigned At Not on file [facility] Start: 12-11-2022 End: 04-02-2023 History of Social function [facility] Start: 12-11-2022 End: 04-02-2023 Tobacco use panel [facility] National Score (1-10 0), lower number is lower risk 36 [facility] Goals Date Patient Goal Desired Activity /State Personal health goal Clinical Notes 10-29-2022 to 05-14-2023 Telephone Encounter - Sindy Rod RN - 04/09/2023 8:24 AM ESTTelephone Encounter - Dinora Denis RN - 04/07/2023 5:22 PM Ana Lilia Rojas RN - 04/02/2023 9:49 AM ESTPatient Instructions Note Date & Type Note Facility 05-14-2023 Note HNO ID: [id number] Author: He Vaughn APRN.ARCHITECT MANAGER Service: ? Author Type: Nurse Practitioner Type: Progress Notes Filed: 05/14/2023 1:12 PM Note Text: Subjective HPI Nontoxic-appearing 35-week female presents urgent care chief complaint flulike symptoms. Patient states had intermittent fever body aches chills sore throat cough chest congestion. Symptoms started 2 days ago. Has not used any OTC medications. Was instructed by CHARGER TESTER to be seen urgent care for flu [...] no known allergies. MEDICATIONS vit calc,iron,folic ( GSWONZYH-EWI-OG-FA ORAL) Take by mouth. FAMILY HISTORY Problem [...] of care. This note was generated using [employer] software. It may contain errors in wording, punctuation, or spelling. He Vaughn APRN.[facility] 04-09-2023 Miscellaneous Notes Order signed and faxed. Sindy Rod RN Written order for breast pump received from [facility] and to to sign. Dinora Denis RN documented in this encounter [facility] 04-02-2023 Note HNO ID: [id number] Author: Carmella Crowder MA Service: ? Author Type: Cmv Driver Type: Progress Notes Filed: 04/02/2023 9:50 AM [...] severely ill: Yes Patient denies history of Guillain-[place] Syndrome (a severe paralytic illness): Yes Tdap Adacel injection was given without incident. See immunizations for details of immunizations administered today. VIS sheet provided: Yes Provider Amaya Israel CNP was present in office at time of injection. Carmella Crowder MA [facility] 04-02-2023 Nurse Note The patient is here for an injection of Rhogam. Dose: 300 mcg Amount wasted: none. Route: Intramuscular Site: right upper quadrant gluteus Tack Coverer: CSL Behring Lot #: [id number] Expiration Date: 07/05/2025 Ana Lilia Chaparro RN documented in this encounter [facility] 04-02-2023 Miscellaneous Notes S: Katie is a [...] Amaya Israel APRN.DAVID documented in this encounter [facility] 04-02-2023 History of Presen t illness Narrative [...] severely ill: Yes Patient denies history of Guillain-[place] Syndrome (a severe paralytic illness): Yes Tdap Adacel injection was given without incident. See immunizations for details of immunizations administered today. VIS sheet provided: Yes Provider Amaya Israel CNP was present in office at time of injection. Carmella Crowder MA documented in this encounter [facility] 04-02-2023 Instructions Carmella Crowder MA - 04/02/2023 8:02 AM EST SEQUENTIAL SCREENINGS The [facility] offers sequential screenings for women who are [...] It will require an appointment with our cardiopulmonary technician. This is not an ultrasound performed [...] the above symptoms, contact our office at [phone] and ask to speak with a nurse. After hours, you can call doctors registry at [phone] OR call [facility] at [phone] and ask to have the doctor commercial production editor paged. If you consider this an emergency, dial 9-1-1 or go to your nearest emergency department. NEED HELP? Are you dealing with a violent or abusive relationship? Are you a victim of rape or sexual assult? Call [facility] ([place]) 24 hour Crisis Hotline: 598.241.7942 or 200-377-5651. MANUAL Your Guide to a Healthy manual is now on-line. Visit [email or web address] to download your free copy documented in this encounter [facility] 03-05-2023 Miscellaneous Notes DISTANCE HEALTH VISIT This Team Access Model visit is a virtual encounter. It required patient-provider interaction for the medical decision making as documented below. I have communicated my name and active licensure. The patient's identity and physical location were verified at the time of this visit. Either the patient or their legal sales and service representative has been informed of the risks [...] with more than 50% of the total pcmn-ai-bhdu time of the visit in counseling / coordination of care. documented in this encounter [facility] 03-01-2023 Miscellaneous Notes Addended by: CHRISTIANO SWANSON [...] morning, no leakage of fluid through underwear. [place] when she sat up a small amount [...] presence of amniotic fluid. Lab Address: Ob/gynecology [address] [place] [address] Dept: [phone] Provider: Christiano Swanson APRN.CNM ASSESSMENT/PLAN: 1. 24 [...] Christiano Swanson APRN.CNM documented in this encounter [facility] 03-01-2023 Instructions Tristan Stevenson Cma - 03/01/2023 10:31 AM EDT SEQUENTIAL SCREENINGS The [facility] offers sequential screenings for women who are [...] It will require an appointment with our cardiopulmonary technician. This is not an ultrasound performed [...] the above symptoms, contact our office at [phone] and ask to speak with a nurse. After hours, you can call doctors registry at [phone] OR call [facility] at [phone] and ask to have the doctor commercial production editor paged. If you consider this an emergency, dial 4-1-0 or go to your nearest emergency department. NEED HELP? Are you dealing with a violent or abusive relationship? Are you a victim of rape or sexual assult? Call [facility] ([place]) 24 hour Crisis Hotline: 854.861.1934 or 683-703-4990. MANUAL Your Guide to a Healthy manual is now on-line. Visit [email or web address] to download your free copy documented in this encounter [facility] 03-01-2023 Miscellaneous Notes 24w0d Pt calling and [...] have pt come in to see provider commercial production editor. This nurse contacted pt and had to leave a voicemail. Pt scheduled at 10:30am. Katie Mccracken LPN documented in this encounter [facility] 02-22-2023 Miscellaneous Notes Order signed. Christiano Swanson [...] CL 1 week documented in this encounter [facility] 02-05-2023 Miscellaneous Notes Linked to appointment. Ana [...] Jacques Fagan MD documented in this encounter [facility] 02-04-2023 Miscellaneous Notes RR- VB No. LOF No. CTXS No. Movement: present. Other c/o: No. Medication list reviewed. Physical Exam See Flow Sheet Abd: soft, nontender, gravid Ext: edema: Trace A/P 20w3d Estimated Date of Delivery: 06/21/23 anatomy US done today. flu vaccine today f/u in 4 weeks or prn John Johnson M.D. documented in this encounter [facility] 02-04-2023 Instructions Filemon Park Ma - 02/04/2023 11:00 AM EDT SEQUENTIAL SCREENINGS The [facility] offers sequential screenings for women who are [...] It will require an appointment with our cardiopulmonary technician. This is not an ultrasound performed [...] the above symptoms, contact our office at [phone] and ask to speak with a nurse. After hours, you can call doctors registry at [phone] OR call [facility] at [phone] and ask to have the doctor commercial production editor paged. If you consider this an emergency, dial 4-1-5 or go to your nearest emergency department. NEED HELP? Are you dealing with a violent or abusive relationship? Are you a victim of rape or sexual assult? Call [facility] ([place]) 24 hour Crisis Hotline: 976.359.7648 or 660-907-9260. MANUAL Your Guide to a Healthy manual is now on-line. Visit [email or web address] [email or web address] to download your free copy documented in this encounter [facility] 12-14-2022 Miscellaneous Notes Patient notified Left message to call office ----- Message from Jessica Rodriguez APRN.CNM sent at 12/14/2022 7:44 AM EDT ----- Please notify patient that she is positive for yeast. She can treat with Monistat 7 vaginally x 7 nights. No intercourse during treatment. Jessica Plotts, PSYCH COORDINATOR.CNM documented in this encounter [facility] 12-11-2022 Miscellaneous Notes Katie Valdovinos is a [...] Jessica Rodriguez APRN.CNM documented in this encounter [facility] 12-11-2022 Instructions Tristan Stevenson Cma - 12/11/2022 8:34 AM EDT SEQUENTIAL SCREENINGS The [facility] offers sequential screenings for women who are [...] It will require an appointment with our cardiopulmonary technician. This is not an ultrasound performed [...] the above symptoms, contact our office at [phone] and ask to speak with a nurse. After hours, you can call doctors registry at [phone] OR call [facility] at [phone] and ask to have the doctor commercial production editor paged. If you consider this an emergency, dial or go to your nearest emergency department. NEED HELP? Are you dealing with a violent or abusive relationship? Are you a victim of rape or sexual assult? Call [facility] ([place]) 24 hour Crisis Hotline: 472.696.7499 or 531-140-7726. MANUAL Your Guide to a Healthy manual is now on-line. Visit [email or web address] Daniel to download your free copy documented in this encounter [facility] 11-10-2022 Note HNO ID: [id number] Author: John Johnson MD Service: ? 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 No current facility-administered [...] have a problem (more content not included)... 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 No current facility-administered [...] Your guide to a health and the [place]. Discussed aneuploidy and carrier screening. Regarding aneuploidy [...] John Johnson MD documented in this encounter [facility] 11-10-2022 Instructions Filemon Park Ma - 11/10/2022 10:15 AM EDT Please select the following link to access the [facility] Your Guide to a Healthy . [email or web address] documented in this encounter [facility] 10-29-2022 Note HNO ID: [id number] Author: Mirtha Kc RN Service: ? Author [...] None, Apgar5: None, Living: None, Comments: None [facility] documented in this encounter [facility] note* Diagnosis with uncertain dates in first trimester- Primary with history of miscarriage, first trimester History of delivery, currently with history of pre-term labor documented in this encounter [facility] note* Diagnosis 12 weeks gestation of - Primary state, incidental Vaginal discharge Leukorrhea, not specified as infective documented in this encounter [facility] note* Diagnosis Encounter for (NT) nuchal translucency scan- Primary Other specified screening Supervision of high risk , antepartum Encounter for screening of mother Unspecified screening 12 weeks gestation of state, incidental documented in this encounter [facility] note* Diagnosis Encounter for supervision of other normal in second trimester- Primary 20 weeks gestation of state, incidental Need for influenza vaccination Need for prophylactic vaccination and inoculation against influenza documented in this encounter [facility] note* Diagnosis History of delivery, currently - Primary with history of pre-term labor documented in this encounter [facility] note* Diagnosis History of delivery, currently - Primary with history of pre-term labor 22 weeks gestation of state, incidental documented in this encounter [facility] note* Diagnosis History of delivery, currently - Primary with history of pre-term labor documented in this encounter [facility] note* Diagnosis History of delivery, currently - Primary with history of pre-term labor 23 weeks gestation of state, incidental documented in this encounter [facility] note* Diagnosis 24 weeks gestation of - Primary state, incidental History of delivery, currently with history of pre-term labor Encounter for supervision of other normal in second trimester Vaginal discharge Leukorrhea, not specified as infective documented in this encounter [facility] note* Diagnosis 24 weeks gestation of - Primary state, incidental History of delivery, currently with history of pre-term labor Supervision of other high risk pregnancies, second trimester documented in this encounter [facility] note* Diagnosis 28 weeks gestation of - Primary state, incidental Supervision of other high risk pregnancies, second trimester History of delivery, currently with history of pre-term labor Need for vaccination Need for prophylactic vaccination and inoculation against unspecified single disease documented in this encounter [facility] for referral (narrative)* Diagnostic Procedure Only (Routine) - Pending Review Specialty Diagnoses / Procedures Referred By Contac t Referred To Contact [facility] Diagnoses Supervision of high risk , antepartum Encounter for screening of mother Procedures NUCHAL TRANSLUCENCY WHI US NUCHAL TRANSLUCENCY 1ST GESTATION John Johnson MD [address] [place] [address] [address] Referral ID Status Reason Start Date Expiration Date Visits Requested Visits Authorized [id number] Pending Review Auto-Generat ed Referral 11/10/2022 11/10/2023 1 1 [facility] for referral (narrative)* Diagnostic Procedure Only (Routine) - Pending Review Specialty Diagnoses / Procedures Referred By Contac t Referred To Contact [facility] Diagnoses History of delivery, currently Procedures OBSTETRIC ULTRASOUND WHI US PREG UTERUS AFTER 1ST TRIMEST GESTATION Jacques Fagan MD [address] [place] [address] [facility] [address] [place] [address] Referral ID Status Reason Start Date Expiration Date Visits Requested Visits Authorized [id number] Pending Review Auto-Generat ed Referral 02/05/2023 02/05/2024 1 [facility] Diagnostic Procedure Only (Routine) - Authorized Specialty Diagnoses / Procedures Referred By Contac t Referred To Contact [facility] Diagnoses History of delivery, currently Procedures OBSTETRIC ULTRASOUND WHI US PREG UTERUS AFTER 1ST TRIMEST GESTATION Christiano Swanson APRN.CNM [address] [place] [address] [facility] [address] [place] [address] Referral ID Status Reason Start Date Expiration Date Visits Requested Visits Authorized [id number] Authorized Auto-Generat ed Referral 02/22/2023 05/16/2023 1 1 [facility] Summary Purpose Family History No Family History Records FoundNo Family History Records FoundNo Family History Records Found Advance Directives No Advanced Directives Records FoundNo Advanced Directives Records FoundNo Advanced Directives Records Found Health Concerns Problem Noted Date [facility] Education - [facility]ON 10/16 Education - [place] 11/10/2022 Problem Noted Date [facility] Education - [facility] 10/16 Education - [place] 11/10/2022 Problem Noted Date Diagnosed Date [facility] Education - [facility] 11/10/2022 Education - [place] 11/10/2022 Problem Noted Date Diagnosed Date [facility] Education - [facility] 11/10/2022 Education - [place] 11/10/2022 Problem Noted Date Diagnosed Date [facility] Education - [facility] 11/10/2022 Education - [place] 11/10/2022 Problem Noted Date Diagnosed Date [facility] Education - [facility] 11/10/2022 Education - [place] 11/10/2022 Problem Noted Date Diagnosed Date [facility] Education - [facility] 11/10/2022 Education - [place] 11/10/2022 Problem Noted Date Diagnosed Date [facility] Education - [facility] 11/10/2022 Education - [place] 11/10/2022 Problem Noted Date Diagnosed Date [facility] Education - [facility] 11/10/2022 Education - [place] 11/10/2022 Problem Noted Date Diagnosed Date [facility] - [facility] 11/10/2022 [place] - [place] 11/10/2022 Problem Noted Date Diagnosed Date [facility] - [facility] 11/10/2022 [place] - [place] 11/10/2022 Problem Noted Date Diagnosed Date [facility] - [facility] 11/10/2022 Education - [place] 11/10/2022 Reason for Referral Specialty Diagnoses / Procedures Referred By Nikia t Referred To Contact [facility] Amaya Israel APRN.ARCHITECT MANAGER [address] [place] [address] [facility] [address] [place] [address] Referral ID Status Reason Start Date Expiration Date V isits Requested Visits Authorized [id number] Pending Review 04/02/2023 07/01/2023 1 1 Additional Source Comments INFORMATION SOURCE (unrecogn ized section and content) DATE CREATED AUTHOR AUTHOR'S ORGANIZ ATION 11/10/2017 [facility] DATE CREATED AUTHOR AUTHOR'S ORGANIZ ATION 05/15/2023 [facility] Source Comments (unrecognize d section and content) In the event this informatio n is protected by the Federal Confidentiality of Alcohol and Drug Abuse Patient Records regulations: The Federal rules restrict any use of the information to criminally investigate or prosecute any alcohol or drug abuse patient.[facility] the event this information is protected by the Federal Confidentiality of Alcohol and Drug Abuse Patient Records regulations: The Federal rules restrict any use of the information to criminally investigate or prosecute any alcohol or drug abuse patient.[facility] the event this information is protected by the Federal Confidentiality of Alcohol and Drug Abuse Patient Records regulations: The Federal rules restrict any use of the information to criminally investigate or prosecute any alcohol or drug abuse patient.[facility] the event this information is protected by the Federal Confidentiality of Alcohol and Drug Abuse Patient Records regulations: The Federal rules restrict any use of the information to criminally investigate or prosecute any alcohol or drug abuse patient.[facility] the event this information is protected by the Federal Confidentiality of Alcohol and Drug Abuse Patient Records regulations: The Federal rules restrict any use of the information to criminally investigate or prosecute any alcohol or drug abuse patient.[facility] the event this information is protected by the Federal Confidentiality of Alcohol and Drug Abuse Patient Records regulations: The Federal rules restrict any use of the information to criminally investigate or prosecute any alcohol or drug abuse patient.[facility] the event this information is protected by the Federal Confidentiality of Alcohol and Drug Abuse Patient Records regulations: The Federal rules restrict any use of the information to criminally investigate or prosecute any alcohol or drug abuse patient.[facility] the event this information is protected by the Federal Confidentiality of Alcohol and Drug Abuse Patient Records regulations: The Federal rules restrict any use of the information to criminally investigate or prosecute any alcohol or drug abuse patient.[facility] Hospital[facility] the event this information is protected by [...] or prosecute any alcohol or drug abuse patient.[facility] the event this information is protected by the Federal Confidentiality of Alcohol and Drug Abuse Patient Records regulations: The Federal rules restrict any use of the information to criminally investigate or prosecute any alcohol or drug abuse patient.[facility] the event this information is protected by the Federal Confidentiality of Alcohol and Drug Abuse Patient Records regulations: The Federal rules restrict any use of the information to criminally investigate or prosecute any alcohol or drug abuse patient.[facility] the event this information is protected by the Federal Confidentiality of Alcohol and Drug Abuse Patient Records regulations: The Federal rules restrict any use of the information to criminally investigate or prosecute any alcohol or drug abuse patient.[facility] the event this information is protected by the Federal Confidentiality of Alcohol and Drug Abuse Patient Records regulations: The Federal rules restrict any use of the information to criminally investigate or prosecute any alcohol or drug abuse patient.[facility] the event this information is protected by the Federal Confidentiality of Alcohol and Drug Abuse Patient Records regulations: The Federal rules restrict any use of the information to criminally investigate or prosecute any alcohol or drug abuse patient.[facility] the event this information is protected by the Federal Confidentiality of Alcohol and Drug Abuse Patient Records regulations: The Federal rules restrict any use of the information to criminally investigate or prosecute any alcohol or drug abuse patient.[facility] Hospital[facility] the event this information is protected by the Federal Confidentiality of Alcohol and Drug Abuse Patient Records regulations: The Federal rules restrict any use of the information to criminally investigate or prosecute any alcohol or drug abuse patient.[facility] Care Teams (unrecognized sec tion and content) Instructional Resource Teacher Relationship Specialty Start Date End Date [place] [address] [place] [address] PCP - General Ophthalmology 12/11/14 Instructional Resource Teacher Relationship Specialty Start Date End Date [place] [address] [place] [address] PCP - General Ophthalmology 12/11/14 Instructional Resource Teacher Relationship Specialty Start Date End Date [address] [place] [address] PCP - General Ophthalmology 12/11/14 Instructional Resource Teacher Relationship Specialty Start Date End Date [place] [address] [place] [address] PCP - General Ophthalmology 12/11/14 Instructional Resource Teacher Relationship Specialty Start Date End Date [address] [place] [address] PCP - General Ophthalmology 12/11/14 Instructional Resource Teacher Relationship Specialty Start Date End Date [place] [address] [place] [address] PCP - General Ophthalmology 12/11/14 Instructional Resource Teacher Relationship Specialty Start Date End Date [place] [address] [place] [address] PCP - General Ophthalmology 12/11/14 Instructional Resource Teacher Relationship Specialty Start Date End Date [address] [place] [address] PCP - General Ophthalmology 12/11/14 Instructional Resource Teacher Relationship Specialty Start Date End Date [address] [place] [address] PCP - General Ophthalmology 12/11/14 Instructional Resource Teacher Relationship Specialty Start Date End Date [address] [place] [address] PCP - General Ophthalmology 12/11/14 Instructional Resource Teacher Relationship Specialty Start Date End Date [address] [place] [address] PCP - General Ophthalmology 12/11/14 Instructional Resource Teacher Relationship Specialty Start Date End Date [address] [place] [address] PCP - General Ophthalmology 12/11/14 Reason for Visit (unrecogniz ed section and content) Specialty Diagnoses / Procedures Referred By Contac t [facility] Diagnoses Supervision of high risk , antepartum Encounter for screening of mother Procedures NUCHAL TRANSLUCENCY WHI US NUCHAL TRANSLUCENCY 1ST GESTATION John Johnson MD [address] [place] [address] [id number] [place] [address] Referral ID Status Reason Start Date Expiration Date Visits Requested Visits Authorized [id number] Authorized Auto-Generat ed Referral 12/02/2022 05/16/2023 99 99 Reason Comments Initial OB Visit Reason Onset Date Comments Care 12/11/2022 Reason Comments Results Reason Onset Date Comments Care 02/04/2023 Immunizations 02/04/2023 Flu vaccination Reason Comments Orders Specialty Diagnoses / Procedures Referred By Contac t Referred To Contact [facility] Diagnoses History of delivery, currently Procedures OBSTETRIC ULTRASOUND WHI US PREG UTERUS AFTER 1ST TRIMEST 1 GESTATION Jacques Fagan MD [address] [place] [address] [address] Referral ID Status Reason Start Date Expiration Date V isits Requested Visits Authorized [id number] Closed Auto-Generate d Referral 02/19/2023 05/16/2023 1 1 Reason Comments Results Orders Specialty Diagnoses / Procedures Referred By Contac t Referred To Contact [facility] Diagnoses History of delivery, currently Procedures OBSTETRIC ULTRASOUND WHI US PREG UTERUS AFTER 1ST TRIMEST GESTATION Christiano Swanson, PSYCH COORDINATOR.CNM [address] [place] [address] [facility] [address] [place] [address] Referral ID Status Reason Start Date Expiration Date V isits Requested Visits Authorized [id number] Closed Auto-Generate d Referral 02/22/2023 05/16/2023 1 1 Reason Comments leaking fluid Reason Onset Date Comments Care 03/01/2023 Reason Onset Date Comments Care 04/02/2023 Specialty Diagnoses / Procedures Referred By Contac t Referred To Contact [facility] Amaya Israel, PSYCH COORDINATOR.ARCHITECT MANAGER [address] [place] [address] [facility] [place] [address] Referral ID Status Reason Start Date Expiration Date V isits Requested Visits Authorized [id number] Pending Review 04/02/2023 07/01/2023 1 1 Reason [...] BE BASED ON THE PRIMARY CLINICAL RECORDS. [facility] [facility] provides no warranty or guarantee of the accuracy or completeness of information in this document.
[2023-05-28] MEDS: Lactated Ringers 1,000 ML 50 ML IV (22:35)
--- NOTE | 2023-05-28 22:44 | PCM.HP.OB ---
HPI - General General Date of Admission: 05/28/23 HPI Narrative KATIE CAMACHO, is a 33 F who presents at 36w4d with PROM. Large amount of clear fluid with rupture of membranes at home. Presented to labor and delivery with irregular contractions. No vaginal bleeding. Maternal Data Information YUNIEL Calculator Estimated Delivery Date Method Current WG Current Estimate 06/21/23 Manual 36w 4d PFSH PFSH Medical History (Updated 05/28/23 @ 22:51 by Rubia Swanson CNM) Colonoscopy planned Hx of gestational diabetes in prior , currently Rh negative state in antepartum period Thyroid enlarged Allergy/AdvReac Type Severity Reaction Status Date / Time No Known Allergies Allergy Verified 05/28/23 20:39 Family History Grandmother Colon cancer CVA (cerebral vascular accident) Grandfather Colon cancer Surgical History (Updated 05/28/23 @ 21:17 by Tamera Bridges) H/O rhinoplasty Social History adopted: No household members: spouse and children number of children: 2 current occupational status: employed 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 current occupational exposures/hazards: No pets and animals: Yes (Not managing litterbox) pets and animals: cat(s) and dog(s) history of recent travel: No sexually active: Yes Smoking Status: Never smoker alcohol intake: never substance use type: does not use well-balanced diet: daily or most days caffeine: No eating out: 1-3 times/week during the past year weight has: remained stable what type of physical activity do you participate in: weight training and other frequency: 1-2 times per week duration: 15-30 minutes/day nisha/sabianism: None seatbelt use: always do you feel safe at home: Yes additional social history: -Ayo- PT 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 Date Name GA/Weeks Outcome Route Bth Weight Infant Gen Labor Lgth Anesthesia Del Locatn Provider FOB 01/16/17 David 34 live - 4lbs 11oz Female 2 2 hours none [facility] Dr. Stu Rollins 03/19/19 Alcira 35 live - Female epidural [facility] BHARAT Delivery Date: 01/16/17 Last Updated by: Krystal Wiley Gestational diabetes Delivery Date: 03/19/19 Last Updated by: Amaya Jones PPROM NST FHR Rate Baby A Baseline: 140 Variability:: Moderate Accelerations:: 15 x 15 Decelerations:: None FHR Category:: Category I Uterine Activity:: Irregular, mild ROS Constitutional Constitutional: Reports systems reviewed and no addt'l complaints, except as documented; Denies headache(s) Eyes Eyes: Denies acute decrease in peripheral vision, blurry vision or change in vision ENT HEENT: Reports systems reviewed and no addt'l complaints, except as documented Cardiovascular Cardiovascular: Denies chest pain or dizziness Respiratory/Chest Respiratory/Chest: Denies cough, dyspnea, dyspnea on exertion, shortness of breath at rest or shortness of breath with exertion Gastrointestinal Gastrointestinal: Denies abdominal pain, diarrhea, nausea or vomiting Genitourinary Genitourinary: Denies abdominal discomfort Musculoskeletal Musculoskeletal: Denies limited range of motion Integumentary Integumentary: Reports systems reviewed and no addt'l complaints, except as documented Neurologic Neurologic: Reports systems reviewed and no addt'l complaints, except as documented Psychiatric Psychiatric: Reports systems reviewed and no addt'l complaints, except as documented Endocrine Endocrinology: Reports systems reviewed and no addt'l complaints, except as documented Hematologic/Lymphatic Hematologic/Lymphatic: Reports systems reviewed and no addt'l complaints, except as documented Allergic/Immunologic Allergic/Immunologic: Reports systems reviewed and no addt'l complaints, except as documented Vital Signs Vital Signs Vital Signs: 05/28/23 20:34 05/28/23 20:34 05/28/23 20:34 Temperature Temperature Source Temporal Pulse Rate 90 Blood Pressure 142/81 H BP Systolic 142 BP Diastolic 81 Pulse Ox 05/28/23 20:34 05/28/23 20:34 05/28/23 21:58 Temperature 98.9 F Temperature Source Pulse Rate Blood Pressure 151/81 H BP Systolic 151 BP Diastolic 81 Pulse Ox 98 05/28/23 21:58 Temperature Temperature Source Pulse Rate 83 Blood Pressure BP Systolic BP Diastolic Pulse Ox Weight Weight: 212 lb 8.41 oz Body Mass Index (BMI) 31.4 Physical Exam Const alert and oriented x3 General Appearance: cooperative Orientation / Consciousness: awake, oriented to person, oriented to place and oriented to time Exam Limitations: no limitations HEENT normocephalic Head and Scalp: normal to inspection, normocephalic and atraumatic Face and Sinus: normal facial exam Eyes General Eye: normal appearance of both eyes Neck full ROM Chest Chest: symmetrical chest wall rise Resp normal respiratory effort and normal air movement Auscultation: clear to auscultation bilaterally Cardio regular rate, regular rhythm, S1 normal heart sound, S2 normal heart sound, no murmurs, no rub, no gallops and no clicks GI normal to inspection, nondistended, normoactive bowel sounds and non-tender appearance of the vagina normal Bladder / Kidney Exam: no CVA tenderness Manual OB Exam: estimated gestational size appropriate, presentation cephalic, dilated 2 cm, effaced 60 and station -2 Amniotic Fluid: clear amniotic fluid Back/Spine normal ROM Extremity normal to inspection and full ROM Skin no rashes or lesions noted Neuro oriented x3, CN's II-XII intact bilaterally and moves all extremities Sensorium / Orientation: awake, alert and oriented to person Motor Exam: clonus present bilaterally one beat Deep Tendon Reflexes: Rt Patellar (L4): 2+ and Lt Patellar (L4): 2+ Labs Labs Labs: Blood Type B NEGATIVE Antibody Screen NEGATIVE Hct 36.3 % (37-47) L Hgb 12.2 g/dL (12.0-15.0) Obstetrics Ultrasound Syphilis Total Ab Pending Rubella IgG Antibody 71.3 IU/mL Hep Bs Antigen Negative (Negative) Chlamydia DNA (MARK) Negative (Negative) N.gonorrhoeae DNA (MARK) Negative (Negative) HIV 1&2 Antibody Non-Reactive (Nonreactive) Glucose 1 Hr 50 gm 101 mg/dL (70-140) Group B Strep DNA Negative (Negative) Rhogam given: No Miscellaneous Test Assessment & Plan (1) 36 weeks gestation of : (2) PROM (premature rupture of membranes): (3) labor: (4) Obesity affecting : (5) Rh negative state in antepartum period: COMMENT: Rhogam injection 05/01. @ 28 weeks (6) Thyroid enlarged: COMMENT: patient reports hx of polyps on thyroid. occasional ultrasounds done, no treatment. (7) Oral herpes: PLAN: Plan 1) Admit to labor and delivery 2) Routine labs 3) BP mildly elevated, preeclampsia labs 4) GBS prophylaxis for 5) Reviewed labor and option for betamethasone, reviewed risks vs benefits and she declines. 6) Reviewed expectant management vs active management of PROM and option to start pitocin. She declines and would like to continue with expectant management, open to nipple stimulation. 7) Planning unmedicated , pain management upon request 8) collaborative physician and on unit for patient admission. Notified of patient status, above assessment and plan of care.
[2023-05-28 22:48] VITALS: BP 141/69; PULSE 75
[2023-05-28 22:51] LABS: Absolute Lymphocyte Count 2.41 X10^3/uL (0.83-4.51); Absolute Neutrophil Count 10.6 X10^3/uL (2.0-7.7); Basophil# 0.05 X10^3/uL; Basophil% 0.4 % (0-1); Eosinophils% 0.7 % (0-5); Hematocrit 36.3 % (37-47); Hemoglobin 12.2 g/dL (12.0-15.0); Lymphocyte # 2.41 X10^3/ul (0.83-4.51); Mean Corp Hgb Conc 33.6 g/dL (32-36); Mean Corpuscular Hgb 31.5 pg (27.0-32.0); Mean Corpuscular Volume 93.8 fL (81-99); Mean Platelet Vol. 12.1 fl (6.2-12.0); Monocyte# 0.95 X10^3/uL; Monocyte% 6.7 % (0-10); NRBC Flagged by Analyzer 0 % (0-5); Neutrophil % 74.8 % (47-70); Platelet Count 288 K/mm3 (150-450); RBC Distribution Width CV 13.4 % (11.6-14.6); RBC Distribution Width SD 45.3 fl (35.1-43.9); Red Blood Count 3.87 M/mm3 (4.2-5.4); White Blood Count 14.2 K/mm3 (4.4-11.0)
[2023-05-28 23:00] VITALS: BP 137/73; PULSE 80
[2023-05-28 23:07] LABS: AST(SGOT) 14 U/L (15-37); Alanine Aminotransfer ALT/SGPT 16 U/L (13-56); Creatinine, Serum 0.88 mg/dL (0.55-1.02); EST Glomerular Filtration Rate 79 mL/min (>60); Est Glom Filt Rate - Afr Amer 96 mL/min (>60); Estimated Creatinine Clearance 114.47 ml/min; Uric Acid 4.2 mg/dL (2.6-6.0)
[2023-05-28] MEDS: Penicillin G Pot 5,000,000 UNITS in 0.9% Normal Saline (100mL MB+) 100 ML 150 UNITS IV (23:17)
[2023-05-28 23:20] LABS: Protein, Urine (Random) 51.3 mg/dL (<11.9); Protein:Creat Ratio 809 mg/g CRE (0-200)
[2023-05-28 23:39] LABS: Syphilis Antibodies Non-reactive
[2023-05-29] VITALS (26 sets, daily range): BP systolic 105–151; BP diastolic 56–76; PULSE 57–163; RESP 16–17; TEMP 36.9–37.7; O2SAT 82–100
[2023-05-29] MEDS: Penicillin G 3,000,000 Units 50 ML 100 UNITS IV ×2 (03:41→08:14)
[2023-05-29] MEDS: Oxytocin 15 Units/NS 250ml 15 UNITS/250 ML IV.SOLN 2 UNITS IV (05:37)
[2023-05-29] MEDS: LACTATED RINGERS 500 ML 999 ML IV (10:09)
[2023-05-29] MEDS: Amnioinfusion- 0.9% NS 1,000 ML IV.SOLN. 1000 ML INTRA-UTER (10:20)
--- NOTE | 2023-05-29 11:46 | EX.PCM.OBRPT ---
Assessment & Plan (1) Vaginal delivery: (2) First degree perineal laceration: Maternal Data Information YUNIEL Calculator Estimated Delivery Date Method Current WG Current Estimate 06/21/23 Manual 36w 5d Vaginal Delivery Maternal Presentation Maternal Presentation: Spontaneous Rupture of Membranes (PROM) Type of Induction: Pitocin (augmentation) Operative Information Date of Procedure: 05/29/23 Pre-Operative Diagnosis: PROM, Post-Operative Diagnosis: , first degree perineal laceration Surgery / Procedure Performed: Spontaneous Vaginal Delivery Type of Anesthesia: None Estimated Blood Loss: 150 ml Time of Delivery: 11:25 Findings Description of Procedure: Progressed to complete with urge to push. Unmedicated. of viable female infant over intact perineum. APGARS 8,9 respectively. Infant head delivered with body immediately forthcoming. Placed on maternal abdomen, strong cry. Mouth and nares suctioned for secretions. Pitocin started for active 3rd stage management. Cord doubly clamped and cut by FOB after pulsations ceased, delayed cord clamping. Placenta delivered intact via thomas, 3 vessel cord intact, marginal cord insertion, sent to pathology. Perineum inspected and revealed 1st degree perineal laceration. Repaired with 3.0 vicryl rapide without anesthesia per patient consent. Fundus firm and hemostasis achieved. EBL 150ml . Mom and baby stable, planning to breastfeed Family bonding well. notified of delivery. Presentation: Vertex Amniotic Membrane Rupture Type: Spontaneous Amniotic Fluid Description: Clear Placental Delivery Description: Spontaneous Placenta Disposition: [facility] Cord Vessel Description: 3 Vessels Cord Entanglement: None Infant A Gender: Female (1 minute): 8 (5 minute): 9 Delayed Cord Clamping: Yes Post Vaginal Delivery Medications Given After Delivery: IV Pitocin Episiotomy Description: None Laceration: Perineal Extension/lac and 1st degree Complication Complications: None
[2023-05-29] MEDS: Oxytocin 15 Units/NS 250ml 15 UNITS/250 ML IV.SOLN 83 UNITS IV (11:59)
[2023-05-29] MEDS: Acetaminophen 500 MG Tablet 1000 MG PO ×2 (12:52→23:50)
[2023-05-29] MEDS: Ibuprofen 600 MG Tablet PO (13:54)
[2023-05-29] MEDS: 0.9% Saline Lock 10 ML Syringe IV (15:08)
[2023-05-30 00:04] VITALS: BP 132/68; PULSE 61; RESP 16; TEMP 36.8; O2SAT 97
[2023-05-30 04:00] VITALS: BP 127/69; PULSE 65; RESP 15; TEMP 36.3; O2SAT 95
[2023-05-30 04:07] LABS: Absolute Lymphocyte Count 2.55 X10^3/uL (0.83-4.51); Absolute Neutrophil Count 10.9 X10^3/uL (2.0-7.7); Basophil# 0.05 X10^3/uL; Basophil% 0.3 % (0-1); Eosinophil# 0.08 X10^3/uL; Eosinophils% 0.6 % (0-5); Hemoglobin 11.6 g/dL (12.0-15.0); Lymphocyte # 2.55 X10^3/ul (0.83-4.51); Lymphocyte % 17.6 % (19-41); Mean Corp Hgb Conc 33.1 g/dL (32-36); Mean Corpuscular Hgb 31.5 pg (27.0-32.0); Mean Corpuscular Volume 95.1 fL (81-99); Mean Platelet Vol. 11.6 fl (6.2-12.0); Monocyte# 0.85 X10^3/uL; Monocyte% 5.9 % (0-10); NRBC Flagged by Analyzer 0 % (0-5); Neutrophil # 10.87 X10^3/uL (2.7-7.7); Neutrophil % 74.9 % (47-70); Platelet Count 248 K/mm3 (150-450); RBC Distribution Width CV 13.5 % (11.6-14.6); RBC Distribution Width SD 46.3 fl (35.1-43.9); Red Blood Count 3.68 M/mm3 (4.2-5.4); White Blood Count 14.5 K/mm3 (4.4-11.0)
[2023-05-30 09:12] VITALS: BP 119/79; PULSE 64; RESP 18; TEMP 36.9; O2SAT 96
[2023-05-30] MEDS: Ibuprofen 600 MG Tablet PO (10:22)
--- NOTE | 2023-05-30 12:37 | PCM.PN.OB ---
Subjective Subjective Doing well per patient and nursing staff. Ambulating and taking PO without difficulty. Voiding and passing flatus. Pain controlled. , services for assistance. Denies headache, visual changes, chest pain, shortness of breath, leg pain or increased bleeding. Lochia normal. Objective Data Objective Data Vital Signs: Vital Signs Temp Pulse Resp BP Pulse Ox O2 Del Method 98.4 F 64 18 119/79 96 Room Air 05/30/23 09:12 05/30/23 09:12 05/30/23 09:12 05/30/23 09:12 05/30/23 09:12 05/30/23 09:12 Oxygen Delivery Method Room Air Weight: 212 lb 8.41 oz Body Mass Index (BMI) 31.4 Intake & Output: Intake and Output for Last 24 Hours 05/28/23 05/29/23 05/30/23 23:59 23:59 23:59 Intake Total 105 / 105 1684.34 / 1684.34 Output Total 400 / 400 600 / 600 Balance -295 / -295 1084.34 / 1084.34 Lab / Micro Data 05/30/23 03:59 05/28/23 22:35 Labs: Laboratory Results - last 24 hr 05/30/23 03:59: WBC 14.5 H, RBC 3.68 L, Hgb 11.6 L, Hct 35.0 L, MCV 95.1, MCH 31.5, MCHC 33.1, RDW Std Deviation 46.3 H, RDW Coeff of Rylee 13.5, Plt Count 248, MPV 11.6, Immature Gran % (Auto) 0.700, Neut % (Auto) 74.9 H, Lymph % (Auto) 17.6 L, [place] % (Auto) 5.9, Eos % (Auto) 0.6, Baso % (Auto) 0.3, Absolute Neuts (auto) 10.9 H, Absolute Lymphs (auto) 2.55, Nucleated RBC % 0 ROS Constitutional Constitutional: Reports systems reviewed and no addt'l complaints, except as documented; Denies headache(s) Eyes Eyes: Denies acute decrease in peripheral vision, blurry vision or change in vision ENT HEENT: Reports systems reviewed and no addt'l complaints, except as documented Cardiovascular Cardiovascular: Denies chest pain or dizziness Respiratory/Chest Respiratory/Chest: Denies cough, dyspnea, dyspnea on exertion, shortness of breath at rest or shortness of breath with exertion Gastrointestinal Gastrointestinal: Denies abdominal pain, diarrhea, nausea or vomiting Genitourinary Genitourinary: Denies abdominal discomfort Musculoskeletal Musculoskeletal: Denies limited range of motion Integumentary Integumentary: Reports systems reviewed and no addt'l complaints, except as documented Neurologic Neurologic: Reports systems reviewed and no addt'l complaints, except as documented Psychiatric Psychiatric: Reports systems reviewed and no addt'l complaints, except as documented Endocrine Endocrinology: Reports systems reviewed and no addt'l complaints, except as documented Hematologic/Lymphatic Hematologic/Lymphatic: Reports systems reviewed and no addt'l complaints, except as documented Allergic/Immunologic Allergic/Immunologic: Reports systems reviewed and no addt'l complaints, except as documented Physical Exam Const alert and oriented x3 General Appearance: cooperative Orientation / Consciousness: awake, oriented to person, oriented to place and oriented to time Exam Limitations: no limitations HEENT normocephalic Head and Scalp: normal to inspection, normocephalic and atraumatic Face and Sinus: normal facial exam Eyes General Eye: normal appearance of both eyes Neck full ROM Chest Chest: symmetrical chest wall rise Resp normal respiratory effort and normal air movement Auscultation: clear to auscultation bilaterally Cardio regular rate, regular rhythm, S1 normal heart sound, S2 normal heart sound, no murmurs, no rub, no gallops and no clicks GI normal to inspection, nondistended, normoactive bowel sounds and non-tender appearance of the vagina normal Bladder / Kidney Exam: no CVA tenderness Back/Spine normal ROM Extremity normal to inspection and full ROM Skin no rashes or lesions noted Neuro oriented x3, CN's II-XII intact bilaterally and moves all extremities Sensorium / Orientation: awake, alert and oriented to person Motor Exam: clonus absent Deep Tendon Reflexes: Rt Patellar (L4): 2+ and Lt Patellar (L4): 2+ Assessment & Plan (1) First degree perineal laceration: (2) Vaginal delivery: (3) Lactating mother: PLAN: Plan 1) PPD#1 2) without difficulty 3) Vitals stable. 4) BP normal, asymptomatic. 5) Planning D/C home tomorrow
[2023-05-30 12:42] VITALS: BP 109/64; PULSE 71; RESP 18; TEMP 37.1
[2023-05-30] MEDS: Senna/Docusate Sodium 1 Tablet PO (14:28)
[2023-05-30 19:37] VITALS: BP 145/84; PULSE 67; RESP 16; TEMP 37
--- NOTE | 2023-05-30 21:30 | NURSING ---
marileea CNM called and updated about pt initial BP on the start of my shift. pt was sitting upright and BP obtained was 145/70. Jcosta states to obtain another BP within 1 hour and if >160/110 to contact her. no further orders or needs at this time.
[2023-05-30 22:29] VITALS: BP 123/67
[2023-05-31 02:50] VITALS: BP 126/73; PULSE 57; RESP 14; TEMP 36.6
--- NOTE | 2023-05-31 08:00 | PCM.PN.OB ---
Subjective Subjective Pt is doing well. She denies any headaches or vision changes. She is ambulating and voiding without difficulty. She has no right upper quadrant pain or nausea and vomiting. She is tolerating regular diet. Lochia is normal. She desires to go home today. Objective Data Objective Data Vital Signs: Vital Signs Temp Pulse Resp BP Pulse Ox O2 Del Method 97.9 F 57 L 14 126/73 H 96 Room Air 05/31/23 02:50 05/31/23 02:50 05/31/23 02:50 05/31/23 02:50 05/30/23 09:12 05/31/23 02:50 Oxygen Delivery Method Room Air Weight: 212 lb 8.41 oz Body Mass Index (BMI) 31.4 Intake & Output: Intake and Output for Last 24 Hours 05/29/23 05/30/23 05/31/23 23:59 23:59 23:59 Intake Total 1684.34 / 1684.34 Output Total 600 / 600 1 / Balance 1084.34 / 1084.34 -1 / -1 Lab / Micro Data 05/30/23 03:59 05/28/23 22:35 Physical Exam Const alert and no apparent distress General Appearance: comfortable HEENT normocephalic Resp normal respiratory effort GI soft to palpation, non-tender and non-distended GI Narrative: FF@U-1 Extremity normal to inspection and no calf tenderness Extremity Narrative: No hyper reflexia or clonus Assessment & Plan (1) Lactating mother: (2) First degree perineal laceration: (3) Vaginal delivery: PLAN: Patient is day 2 from a vaginal delivery. She had an isolated elevated blood pressure and the next 2 blood pressures were normal. Will check another BP this morning prior to discharge. She has no symptoms of preeclampsia. She will check her blood pressure at home as she has a blood pressure cuff available. She will call the office today to schedule blood pressure check this week. Discharge instructions reviewed. She is meeting milestones for discharge.
--- NOTE | 2023-05-31 08:04 | DCINST_ITS ---
Discharge Instructions Diet Discharge Diet: No restrictions Activity Discharge Activity: May Drive and May Shower May resume sexual activity in: 6 weeks Ice area for (Minutes): 15 Weight Bearing Status: Weight bearing as tolerated Lifting Restrictions: Nothing heavier than baby Additional Activity Instructions:: Check you blood pressure at home at least o nce daily, and keep record of your blood pressures. If you have a severe headache, vision changes, nausea and vomiting, or if you do not feel well please check your blood pressure and call the office. If you have a blood pressure of 160/110 call the office or after hours line. Call the office today to schedule a blood pressure check and early visit in the office early this week. Dressing / Incision Call your doctor if you observe: Fever of 101 or Higher, Coldness, Increased Pain, Numbness or Tingling, Change in Color, Inability to urinate, Inability to have a bowel movement, Using more than 1 pad per hour, Shortness of breath, Dizziness, Fainting spells, Swelling in the ankles, Chest pain, Prolonged hiccupping, Increased palpitations (irregular heartbeat), Calf discomfort and Uncontrolled pain Cleanse incision/area with: Soap & Water Follow Up Care Please Follow Up With: Rubia Swanson CNM When: Call the office today 05/31/23 to schedule a blood pressure check in the office this week You will also need a 6 week visit Test Results: Test results from this visit will be discussed in further detail at your follow- up appointment, if applicable. Discharge Plan Admission Admit Date/Time: 05/28/23 22:00 Primary Reason for Your Visit: delivery Attending Provider: Rubia Swanson Primary Care Provider: Vaishali Wan Instructions Patient Instructions: After a Vaginal Discharge Orders/Prescriptions Referrals / Follow Up: Vaishali Wan MD [Primary Care Provider] - Disposition Disposition (needs filled in before D/C Order can be placed): Home, Self Care
[2023-05-31 08:10] VITALS: BP 133/78; PULSE 63; RESP 16; TEMP 36.8
[2023-05-31 12:30] VITALS: BP 133/78; PULSE 63; RESP 18; TEMP 36.7
[2023-06-01 15:42] LABS: Pathology Specimen OB SEE PATHOLOGY REPORT
--- NOTE | 2023-06-22 11:11 | NURSING ---
corrected place of care (hospital ) and provider ([facility])
== END 2023-05-31 13:25 | disposition home or self-care (01) | DRG 807 ==
LOC: WPOUT 22:03 → WP 22:03
PROVIDERS: Admitting Provider Advanced Practice Midwife; PCP Family Medicine; Referring Provider Advanced Practice Midwife; Visit Provider Advanced Practice Midwife
DX: O42.913 Preterm premature rupture of membranes, unspecified as to length of time between rupture and onset of labor, third trimester (principal); Z37.0 Single live birth; R03.0 Elevated blood-pressure reading, without diagnosis of hypertension; O26.893 Other specified pregnancy related conditions, third trimester; O99.214 Obesity complicating childbirth; O43.193 Other malformation of placenta, third trimester; O70.0 First degree perineal laceration during delivery; Z3A.36 36 weeks gestation of pregnancy
CPT/HCPCS: 59025; 59050; 82565; 82570; 84112; 84156; 84450; 84460; 84550; 85025; 86780; 86850; 86900; 86901; 87081; 87653; 88307; 99221; J7030; J7120; A4216; G0378

== ENCOUNTER → 2024-05-05 | Outpatient (CLI) | payer BC, SELFPAY ==
[2024-05-05 12:22] LABS: Hematocrit 41.3 % (37-47); Hemoglobin 13.1 g/dL (12.0-15.0); Mean Corp Hgb Conc 31.7 g/dL (32-36); Mean Corpuscular Hgb 29.6 pg (27.0-32.0); Mean Corpuscular Volume 93.4 fL (81-99); Mean Platelet Vol. 11.4 fl (6.2-12.0); Platelet Count 304 K/mm3 (150-450); RBC Distribution Width CV 12.6 % (11.6-14.6); RBC Distribution Width SD 43.5 fl (35.1-43.9); Red Blood Count 4.42 M/mm3 (4.2-5.4); White Blood Count 8.6 K/mm3 (4.4-11.0)
[2024-05-05 12:46] LABS: Anion Gap 6 (5-15); BUN 13 mg/dL (7-18); BUN/Creat Ratio 17.1 RATIO (10-20); Calcium,Total 9.4 mg/dL (8.5-10.1); Chloride 106 mmol/L (98-107); Creatinine, Serum 0.76 mg/dL (0.55-1.02); EST Glomerular Filtration Rate 93 mL/min (>60); Est Glom Filt Rate - Afr Amer 113 mL/min (>60); Glucose 80 mg/dL (74-106); Potassium 4.1 mmol/L (3.5-5.1); Sodium Level 138 mmol/L (136-145)
== END | disposition home or self-care (01) ==
LOC: MFPLAB 09:25
PROVIDERS: PCP Family Medicine
DX: Z23 Encounter for immunization (principal)
CPT/HCPCS: 36415; 80048; 84443; 85027

== ENCOUNTER → 2024-05-12 | Outpatient (CLI) | payer BC, SELFPAY ==
--- NOTE | 2024-05-12 12:46 | US_ITS ---
STUDY: THYROID ULTRASOUND REASON FOR EXAM: Female, 34 years old. Nontoxic multinodular goiter TECHNIQUE: Ultrasound evaluation of the thyroid was performed with real-time and static wilkerson-scale imaging. COMPARISON: 05/23/2020 FINDINGS: RIGHT LOBE: The right lobe of the thyroid gland measures 5.5 x 1.8 x 1.4 cm. There is a homogeneous echotexture. There are no demonstrated solid, cystic or complex lesions. LEFT LOBE: The left lobe of the thyroid gland measures 5.1 x 1.8 x 1.3 cm. There is a homogeneous echotexture. Nodule 1:7 x 2 x 6 mm cystic anechoic wider than tall smoothly marginated nodule with no echogenic foci (TR 1) in the mid left lobe consistent with a colloid cyst. Nodule 2:5 x 3 x 3 mm cystic anechoic wider than tall smoothly marginated nodule with no echogenic foci (TR 1) in the mid left lobe consistent with a colloid cyst. ISTHMUS: The isthmus measures 3 mm thick. . The regional lymph nodes are normal. 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 Electronically Signed: Marc Peguero MD at 8:29 EST ,
== END | disposition home or self-care (01) ==
PROVIDERS: PCP Family Medicine
DX: E04.2 Nontoxic multinodular goiter (principal)
CPT/HCPCS: 76536